=== PATIENT | male | born 1955 | race Caucasian/White ===

== ENCOUNTER → 2019-10-06 10:50 | Outpatient (CLI) | payer BC, SELFPAY | PROVIDERS: PCP Internal Medicine; Referring Provider Nurse Practitioner; Visit Provider Nurse Practitioner | DX: Z20.828 Contact with and (suspected) exposure to other viral communicable diseases (principal) | CPT/HCPCS: 87635; 94799; C9803; U0003 ==

== ENCOUNTER 2020-06-07 13:22 | Emergency (ER) | payer BC, SELFPAY ==
[2020-06-07 13:24] VITALS: BP 149/86; PULSE 74; RESP 16; TEMP 36.8; O2SAT 97; BMI 28.0
--- NOTE | 2020-06-07 13:46 | ED.VIS.FALL ---
History of Present Illness Chief Complaint: Upper Extremity Injury Informant: Patient Occurred: Today Fall down steps #: several Location: R shoulder Quality of Pain: Aching Current Severity: Moderate Maximum Severity: Severe Worsened by: movement Relieved by: still in sling Associated Symptoms: Loss of function. Negative for: Parasthesias, Weakness, Inability to ambulate, Loss of consciousness, Amnesia Narrative: Patient was trying to walk down the steps with crutches that he has been using because of a heel spur, lost his balance, falling down and caught himself with right outstretched hand, injuring his right shoulder as a result. No other injuries. No numbness in his hand. No wrist or elbow pain. Did not injure his head. Past Medical History - Allergies and Home Meds Allergies/Adverse Reactions: Allergies tamsulosin [From Flomax] Allergy (Verified 06/07/20 13:24) Swelling Primary Care Physician: Hemant Ross MD [Primary Care Provider] - Past Medical History: None Smoking Status: Never smoker Review of Systems General: Denies: Chills, Fever, Sweats Musculoskeletal: Reports: Extremity Pain. Denies: Swelling Skin: Denies: Rash, Wounds Neurological: Denies: Headache, Weakness, Numbness Physical Exam Vital Signs/Narrative: Vital Signs Temp Pulse Resp BP Pulse Ox 06/07/20 13:24 98.2 F 74 16 149/86 H 97 Inital Vital Signs reviewed: Yes General: Well nourished, Well developed, - - Well-appearing no distress Head: Normocephalic, Atraumatic Eyes: Perrl, EOMI Neck: Full ROM Extremeties: No deformity right upper extremity, limited range of motion of the right shoulder due to pain, holding right upper extremity in neutral abducted position with internal rotation. Pain and tenderness subacromial. No tenderness at the clavicle or acromioclavicular joint. Very limited ability to range in any direction, he is able to abduct around 15 degrees. Skin: Normal color, No rash, No Trauma - Skin intact with no signs of trauma right upper extremity Neurological: Alert, Oriented x3, Cranial nerves II-XII grossly intact, Normal Strength, Normal Sensation Psychological: Normal affect, Normal Mood Diagnostic/Tx/Re-eval Clinical Impression(s) from Imaging Studies Shoulder X-Ray 06/07/20 14:00 IMPRESSION: Normal x-ray examination of the right shoulder. Electronically Signed: Roger Iraheta MD at 14:30 EDT Tel , Service support , - Medical Decision Making On my interpretation 5 view x-ray series of the right shoulder including axillary view is adequate to rule out dislocation and also is negative for any other acute bony injury. Radiography agrees. Patient was given a [place] for pain, he did request a short course of some more for the weekend, the sling that he already came in with is helping as well. Given his extremely limited range of motion, my concern would be for a rotator cuff injury/tear. Certainly that is possible and he may need an MRI if he is not able to move his shoulder very much after a couple days or a week of rest and anti-inflammatories. He states he is already on the end of a prednisone taper because of his bone spur in his foot that he is following with podiatry for, and he takes aspirin because of history of congestive heart failure, so I think ice instead of ibuprofen would be reasonable in addition to [place] as needed. Given orthopedics to follow-up with. ED Disposition - Plan for ED Patient: Disposition: Home or Assisted Living Diagnosis: Injury of right shoulder Instructions: ED Rotator Cuff Tear Prescriptions: Hydrocodone Bitart/Apap 5-325 [[place] 5MG-325MG] 1 tablet PO Q4H PRN PRN 2 Days #10 tab PRN Reason: Pain Prescription Printed Referrals: Daniel Ashraf MD [STAFF PHYSICIAN] - 1 Week if not improving
--- NOTE | 2020-06-07 14:00 | RAD_ITS ---
STUDY: X-RAY - RIGHT SHOULDER REASON FOR EXAM: Right shoulder pain, limited range of motion, right shoulder injury from a fall today. TECHNIQUE: 5 view(s) of the shoulder. COMPARISON: None. FINDINGS: Normal glenohumeral articulation. Normal acromioclavicular joint. Normal acromion. Normal humeral head and visualized proximal humerus. The soft tissue structures are unremarkable. Normal visualized pulmonary apex. RAD/Shoulder min 2 Views IMPRESSION: Normal x-ray examination of the right shoulder. Electronically Signed: Roger Iraheta MD at 14:30 EDT Tel , Service support ,
== END 2020-06-07 15:02 | disposition home or self-care (01) ==
PROVIDERS: Emergency Provider Emergency Medicine; PCP Internal Medicine
DX: S49.91XA Unspecified injury of right shoulder and upper arm, initial encounter (principal); W10.9XXA Fall (on) (from) unspecified stairs and steps, initial encounter
CPT/HCPCS: 73030; 99282

== ENCOUNTER 2021-03-07 09:43 | Outpatient (CLI) | payer MEDICARE, BC, SELFPAY ==
--- NOTE | 2021-03-07 09:46 | ECHOCS_ITS ---
Reason For Study: Dyspnea/SOB Procedure This was a 2D Doppler, Color Flow transthoracic echocardiogram. Contrast injection was performed. Exam performed in department. Left Ventricle Normal LV size. Mild concentric left ventricular hypertrophy. Septal motion consistent with IVCD. Stage 1 diastolic dysfunction. The estimated ejection fraction is 47 %. There is borderline global hypokinesis of the left ventricle. Right Ventricle Normal RV size. Normal systolic function. Atria Normal left atrium. Normal right atrium. Mitral Valve Normal mitral valve. Systolic anterior motion of the mitral valve. Tricuspid Valve Normal tricuspid valve. Mild (1+) tricuspid valve insufficiency. Pulmonary artery systolic pressure is 24 mmHg. Aortic Valve Normal aortic valve. Trisinus/trileaflet aortic valve. Mild (1+) eccentric aortic valve insufficiency. Pulmonic Valve Normal pulmonic valve. Great Vessels Normal aortic root. The pulmonary artery is normal size. Normal inferior vena cava. Pericardium/Pleural No pericardial effusion. MMode/2D Measurements & Calculations LVIDd: 4.3 cm IVSd: 1.5 cm Ao root diam: 2.8 cm LVIDs: 3.5 cm LVPWd: 1.2 cm RVDd: 2.6 cm FS: 19.0 % LAV(MOD-bp): 13.4 ml LVAd ap4: 37.7 cm2 SV(MOD-sp4): 65.8 ml LAV(MOD-bp) Indexed: 7.0 ml/m2 LVLd ap4: 8.5 cm LAV(MOD-sp2): 13.8 ml EDV(MOD-sp4): 139.1 ml LAV(MOD-sp4): 11.0 ml EDV(sp4-el): 142.2 ml LVAs ap4: 25.5 cm2 LVLs ap4: 7.3 cm ESV(MOD-sp4): 73.3 ml ESV(sp4-el): 75.5 ml EF(MOD-sp4): 47.3 % EF(sp4-el): 46.9 % SV(sp4-el): 66.6 ml LA A4 area: 7.3 cm2 LA dimension(2D): 2.9 cm RA A4 area: 7.2 cm2 Doppler Measurements & Calculations MV E max uche: 42.0 cm/sec Lat Peak E' Uche: 5.5 cm/sec Med Peak E' Uche: 2.6 cm/sec MV A max uche: 98.3 cm/sec E/E' lat: 7.7 E/E' med: 16.3 MV E/A: 0.43 Ao V2 max: 144.9 cm/sec AI max uche: 442.8 cm/sec LV V1 max: 107.6 cm/sec Ao max P.4 mmHg AI max P.4 mmHg LV V1 max P.6 mmHg Ao V2 mean: 100.1 cm/sec Ao mean P.5 mmHg AI dec slope: 206.8 cm/sec2 Ao V2 VTI: 24.7 cm AI P1/2t: 627.0 msec PA V2 max: 146.4 cm/sec TR max uche: 227.6 cm/sec TR max P.7 mmHg ECHO/Echo Complete W/ Contrast Interpretation Summary Normal LV size. Mild concentric left ventricular hypertrophy. Stage 1 diastolic dysfunction. The estimated ejection fraction is 47 %. There is borderline global hypokinesis of the left ventricle. Mild (1+) eccentric aortic valve insufficiency. Contrast injection was performed. Ordering Physician: Manas Burns Referring Physician: Hemant Ross Performed By: Page Byrne, LAY, RVT
== END 2021-03-07 23:59 | disposition short-term general hospital (02) ==
LOC: CVS 09:45
PROVIDERS: PCP Internal Medicine; Referring Provider Internal Medicine Cardiovascular Disease; Visit Provider Internal Medicine Cardiovascular Disease
DX: I44.7 Left bundle-branch block, unspecified (principal); R06.00 Dyspnea, unspecified; R06.02 Shortness of breath
CPT/HCPCS: 93306; Q9957; A4216; C8929

== ENCOUNTER 2021-05-15 17:27 | Emergency (ER) | payer MEDICARE, BC, SELFPAY ==
[2021-05-15 17:27] VITALS: BP 145/92; PULSE 68; RESP 16; TEMP 36.6; O2SAT 97; BMI 28.1
--- NOTE | 2021-05-15 19:07 | CT_ITS ---
INDICATION: Injury/Pain EXAMINATION: CT CERVICAL SPINE - CT Spine Cervical W/O Contrast Injection TECHNIQUE: Helically acquired images were obtained of the cervical spine. 2D reformatted images were reviewed. A radiation dose optimization technique was used for this scan. IV Contrast dosage and agent: None. COMPARISON: None. FINDINGS: VERTEBRAE: No fracture or traumatic subluxation. No discrete lytic or blastic abnormality. Normal alignment. Normal craniocervical junction and cervicothoracic junction. Normal alignment of the odontoid process. DISCS and SPINAL CANAL: Disc heights are preserved. No critical stenosis. NECK SOFT TISSUES: No prevertebral soft tissue swelling. There is no cervical adenopathy. LUNG APICES: Clear. CT/Spine Cervical without Contras IMPRESSION: No evidence of acute cervical spinal fracture or spondylolisthesis. Electronically Signed: Gray Darby MD at 19:57 EDT ,
[2021-05-15] MEDS: HYDROcodone Bitartrate/Apap 5/325 Tablet PO (19:13)
--- NOTE | 2021-05-15 19:14 | EDS_ITS ---
HPI History of Present Illness Chief Complaint: Other, Pain/Inj Informant: patient Onset/Context/Timing Onset: Days (6) Context: Gradual Onset Timing: Continuous Quality: Sharp Location: Left cervical paraspinal Worsened by: Certain movements Relieved by: Nothing Narrative Narrative: Patient presents with neck pain that has been getting worse over the past 6 days. Patient states it is gradually getting worse. Patient describes the pain is sharp. Patient states the pain is over the left side of his neck. Patient states it is worse with certain movements. Patient denies any paresthesias or weakness. Patient denies any trauma or injury. Patient denies any radiation of the pain. [facility] Medical History BPH (benign prostatic hyperplasia) Chronic HFrEF (heart failure with reduced ejection fraction) COVID-19 virus detected (09/2019) DDD (degenerative disc disease) Essential hypertension Hypertriglyceridemia Left bundle branch block (LBBB) Non-ischemic cardiomyopathy Nonrheumatic aortic (valve) insufficiency Obstructive sleep apnea Prostate cancer Home Medications aspirin 81 mg PO DAILY@0800 06/07/20 [History Last Taken Unknown] cholecalciferol (vitamin D3) 25 mcg (1,000 unit) capsule 50 mcg PO DAILY cap 12/18/20 [History Last Taken Unknown] carvedilol 12.5 mg tablet 12.5 mg PO BID #60 tab 01/06/21 [Rx Last Taken Unknown] atorvastatin 10 mg tablet 10 mg PO DAILY #90 tab 04/29/21 [Rx Last Taken Unknown] sacubitril 97 mg-valsartan 103 mg tablet 1 tab PO BID #60 tab 05/12/21 [Rx Last Taken Unknown] hydrocodone-acetaminophen 1 tab PO Q6H PRN PRN 3 Days #10 tablet 05/15/21 [Rx Last Taken Unknown] Allergy/AdvReac Type Severity Reaction Status Date / Time tamsulosin [From Flomax] Allergy Swelling Verified 05/15/21 17:29 Surgical History H/O arthroscopic knee surgery History of cataract surgery History of colonoscopy History of left heart catheterization (03/29/18) History of myringotomy History of transurethral resection of prostate Social History Smoking Status: Never smoker alcohol intake: never substance use type: does not use caffeine: Yes Type: coffee Number of servings: 1 ROS ROS ED Constitutional Constitutional ED: Denies chills or fever(s) Eyes Eyes: Denies blurry vision or change in vision ENT ENT ED: Denies rhinorrhea or sore throat Cardiovascular Cardiovascular: Denies chest pain or palpitations Respiratory/Chest Respiratory/Chest: Denies cough or dyspnea Gastrointestinal Gastrointestinal: Denies nausea or vomiting Genitourinary Genitourinary ED: Denies dysuria or hematuria Musculoskeletal Musculoskeletal: Reports neck pain; Denies back pain Integumentary Denies abscess or rash Neurologic Neurologic: Denies headache(s) or weakness Allergic/Immunologic Allergic/Immunologic ED: Denies mouth swelling or urticaria EXAM Physical Exam Const Vital Signs: 05/15/21 17:27 Temperature 97.8 F Temperature Source Temporal Pulse Rate 68 Respiratory Rate 16 Blood Pressure 145/92 H Blood Pressure Mean 109 Pulse Ox 97 Oxygen Delivery Method Room Air Positive well nourished and well developed General Appearance ED: well developed and NAD HEENT Reports moist mucous membranes Neck supple and no JVD Neck Narrative: There is tenderness over the left cervical paraspinal muscles. There is no midline tenderness. There is no bony crepitance or step-off. Range of motion was limited in all motions of the cervical spine secondary to pain. General: tenderness Extremity normal to inspection General Extremety ED: Negative for edema or tenderness General Extremity: Negative for edema Neuro oriented x3, CN's II-XII intact bilaterally and no sensory deficits noted Sensorium / Orientation: alert Motor Exam: strength 5/5 throughout Psych mental status grossly normal Skin no rashes or lesions noted MDM MDM MDM Narrative Medical decision making narrative: CT scan cervical spine was obtained. There is no acute fracture or spondylolisthesis. This was interpreted by the radiologist and reviewed by myself. Patient was advised of his findings. Patient was given a prescription for a short course of [place]. Patient was instructed to use heat to the area. Patient was instructed to follow-up with his primary care physician in 5 to 7 days. Patient understood and was agreeable with the plan. All questions were answered. Radiography Diagnostic Testing: Clinical Impression(s) from Imaging Studies Cervical Spine CT 05/15/21 19:07 IMPRESSION: No evidence of acute cervical spinal fracture or spondylolisthesis. Electronically Signed: Gray Darby MD at 19:57 EDT , Discharge Plan Triage Chief Complaint: Other, Pain/Inj ED Provider: Sudheer Davenport Dx/Rx/DC Orders Clinical Impression: Acute cervical myofascial strain Instructions: ED Neck Sprain or Strain Prescriptions: New hydrocodone-acetaminophen [hydrocodone-acetaminophen] 1 TABLET tablet 1 tab PO Q6H PRN PRN (Reason: Pain) 3 Days Qty: 10 RF: 0 No Action cholecalciferol (vitamin D3) 25 mcg (1,000 unit) capsule 50 mcg PO DAILY RF: 0 Entresto 97-103 mg tablet 1 tab PO BID Qty: 60 RF: 11 aspirin 81 MG tablet,chewable 81 mg PO DAILY@0800 RF: 0 carvedilol 12.5 mg tablet 12.5 mg PO BID Qty: 60 RF: 11 atorvastatin 10 mg tablet 10 mg PO DAILY Qty: 90 RF: 3 Primary Care Provider: Hemant Ross Referrals: Hemant Ross MD [Primary Care Provider] - 3-5 Days Disposition Disposition: Home, Self Care
== END 2021-05-15 21:20 | disposition home or self-care (01) ==
PROVIDERS: Emergency Provider Emergency Medicine; PCP Internal Medicine; Visit Provider Emergency Medicine
DX: S16.1XXA Strain of muscle, fascia and tendon at neck level, initial encounter (principal); I11.0 Hypertensive heart disease with heart failure; I50.22 Chronic systolic (congestive) heart failure; I42.8 Other cardiomyopathies; E78.1 Pure hyperglyceridemia; G47.33 Obstructive sleep apnea (adult) (pediatric); X58.XXXA Exposure to other specified factors, initial encounter; Z79.82 Long term (current) use of aspirin; Z79.899 Other long term (current) drug therapy; Z86.16 Personal history of COVID-19
CPT/HCPCS: 72125; 99282

== ENCOUNTER 2021-06-24 06:00 | Emergency (ER) | payer MEDICARE, BC, SELFPAY ==
[2021-06-24 06:02] VITALS: BP 152/95; PULSE 74; RESP 17; TEMP 37.1; O2SAT 97; BMI 29.2
--- NOTE | 2021-06-24 06:09 | ED.VIS.LOWEX ---
HPI History of Present Illness Chief Complaint: Lower Extremity Injury Informant: patient Narrative Narrative: Patient is a 65-year-old male with history of gout, hypertension, hyperlipidemia, valvular insufficiency, nonischemic cardiomyopathy and prostate cancer presenting with bilateral foot pain. Patient states his feet started hurting him 5 days ago. Pain is on the left foot at the base of the second toe and on the right foot inferior to the lateral malleolus. He also noticed a red rash on his leg started yesterday. He states it feels like his prior gout flares. He is not currently on any medicine for gout. Denies any chest pain, shortness of breath or difficulty breathing. Denies any fever or chills. Denies any night sweats. No other complaints at this time. He tried taking Tylenol with no relief of his symptoms. PFSH [facility] Medical History BPH (benign prostatic hyperplasia) Chronic HFrEF (heart failure with reduced ejection fraction) COVID-19 virus detected (09/2019) DDD (degenerative disc disease) Essential hypertension Hypertriglyceridemia Left bundle branch block (LBBB) Non-ischemic cardiomyopathy Nonrheumatic aortic (valve) insufficiency Obstructive sleep apnea Prostate cancer Home Medications aspirin 81 mg PO DAILY@0800 06/07/20 [History Last Taken Unknown] cholecalciferol (vitamin D3) 25 mcg (1,000 unit) capsule 50 mcg PO DAILY cap 12/18/20 [History Last Taken Unknown] carvedilol 12.5 mg tablet 12.5 mg PO BID #60 tab 01/06/21 [Rx Last Taken Unknown] atorvastatin 10 mg tablet 10 mg PO DAILY #90 tab 04/29/21 [Rx Last Taken Unknown] sacubitril 97 mg-valsartan 103 mg tablet 1 tab PO BID #60 tab 05/12/21 [Rx Last Taken Unknown] colchicine 0.6 mg PO DAILY #7 tab 06/24/21 [Rx Last Taken Unknown] oxycodone-acetaminophen [Percocet] 1 tab PO Q6H PRN 3 Days #12 tab 06/24/21 [Rx Last Taken Unknown] prednisone 40 mg PO DAILY #8 tab 06/24/21 [Rx Last Taken Unknown] Allergy/AdvReac Type Severity Reaction Status Date / Time tamsulosin [From Flomax] Allergy Swelling Verified 05/15/21 17:29 Surgical History H/O arthroscopic knee surgery History of cataract surgery History of colonoscopy History of left heart catheterization (03/29/18) History of myringotomy History of transurethral resection of prostate Social History Smoking Status: Never smoker alcohol intake: never substance use type: does not use caffeine: Yes Type: coffee Number of servings: 1 ROS ROS ED Constitutional Constitutional ED: Denies chills or fever(s) Eyes Eyes: Denies change in vision ENT ENT ED: Denies rhinorrhea or sore throat Cardiovascular Cardiovascular: Denies chest pain Respiratory/Chest Respiratory/Chest: Denies cough or dyspnea Gastrointestinal Gastrointestinal: Denies abdominal pain, nausea or vomiting Musculoskeletal Musculoskeletal: Reports arthralgias; Denies back pain or neck pain Integumentary Reports rash Neurologic Neurologic: Denies headache(s), paresthesias or weakness Psychiatric Psychiatric: Denies depression EXAM Physical Exam Const Vital Signs: 06/24/21 06:02 06/24/21 06:05 Temperature 98.8 F Temperature Source Temporal Pulse Rate 74 Respiratory Rate 17 Respiratory Effort Normal Blood Pressure 152/95 H Blood Pressure Mean 114 Pulse Ox 97 Oxygen Delivery Method Room Air Positive well nourished and well developed General Appearance ED: well developed HEENT normocephalic and atraumatic Eyes PERRL Neck full ROM and supple Chest Wall inspection of chest normal Resp normal respiratory effort and clear to auscultation bilaterally Cardio regular rate, regular rhythm and no murmurs GI non-tender and non-distended Palpation: soft Extremity full ROM Extremity Narrative: No palpable cords. No significant edema. Normal range of motion. Slight tenderness palpation at the base of the left second toe and inferior to the lateral malleolus. No pinpoint bony tenderness. General Extremety ED: Negative for edema General Extremity: Negative for edema Neuro oriented x3, moves all extremities and no sensory deficits noted Sensorium / Orientation: alert Motor Exam: strength 5/5 throughout Skin Skin Narrative: Patient has a fine petechial rash on the bilateral lower extremities below the knees. No purpura appreciated. Mild warmth and erythema noted of the dorsal aspect of the left foot proximal to the left second through third phalanges. Patient has mild warmth and erythema inferior and slightly distal to the right lateral malleolus. MDM MDM MDM Narrative Medical decision making narrative: Patient evaluated for 5 days of bilateral foot pain. Does have history of gout. Does have some mild erythema and warmth that could be consistent with an acute gouty flare. Does also have a petechial rash of his lower extremities. Patient states this is new over the past few days. We will check basic labs including a CBC to check platelet count as well as BMP for kidney function. We will give patient 4 mg of morphine initially. I did also order CPK. Patient is given IV morphine but does not have any significant improvement. He states when he had his prostate surgery he required large amounts of pain medicine. Patient has normal platelet count. No leukocytosis. Kidney function is normal. Magnesium is normal. No significant electrolyte abnormalities. CK still pending. Patient be treated like a gouty flare. He is given dose of prednisone, colchicine and oxycodone in the ER. He will be discharged home to follow-up with podiatry. He has appointment for later this week with [facility]. He is given a prescription for prednisone, colchicine and Percocet. He is counseled that the colchicine can cause diarrhea. He is counseled this time that I do not think this is an infection and I do not think antibiotics are indicated. I do not think this is a septic joint. I do not think emergent arthrocentesis indicated at this time. He is given return precautions including worsening redness, fever or other systemic symptoms. Patient verbalizes agreement understand this plan. Discharged home in stable condition. Lab Data Labs: Laboratory Results - last 24 hr 06/24/21 06/24/21 06:10 06:10 WBC 7.2 RBC 4.64 Hgb 14.4 Hct 41.3 MCV 89.0 MCH 31.0 MCHC 34.9 RDW Std Deviation 42.3 RDW Coeff of Bernabe 12.9 Plt Count 178 MPV 8.9 Immature Gran % (Auto) 0.300 Neut % (Auto) 63.3 Lymph % (Auto) 25.9 [place] % (Auto) 8.3 Eos % (Auto) 1.9 Baso % (Auto) 0.3 Absolute Neuts (auto) 4.6 Absolute Lymphs (auto) 1.86 Nucleated RBC % 0 Sodium 141 Potassium 4.1 Chloride 109 H Carbon Dioxide 27.0 Anion Gap 5 BUN 20 H Creatinine 1.26 Estim Creat Clear Calc 56.10 Est GFR (MDRD) Af Amer 74 Est GFR (MDRD) Non-Af 61 BUN/Creatinine Ratio 15.9 Glucose 115 H Calcium 9.2 Magnesium 2.5 Discharge Plan Triage Chief Complaint: Lower Extremity Injury ED Provider: Faby Pradhan Dx/Rx/DC Orders Clinical Impression: Pain in both feet, Gout flare Instructions: ED Gout Prescriptions: New oxycodone-acetaminophen [Percocet] 5-325 mg tablet 1 tab PO Q6H PRN (Reason: pain) 3 Days Qty: 12 RF: 0 colchicine 0.6 mg tablet 0.6 mg PO DAILY Qty: 7 RF: 0 prednisone 20 mg tablet 40 mg PO DAILY Qty: 8 RF: 0 No Action cholecalciferol (vitamin D3) 25 mcg (1,000 unit) capsule 50 mcg PO DAILY RF: 0 Entresto 97-103 mg tablet 1 tab PO BID Qty: 60 RF: 11 aspirin 81 MG tablet,chewable 81 mg PO DAILY@0800 RF: 0 carvedilol 12.5 mg tablet 12.5 mg PO BID Qty: 60 RF: 11 atorvastatin 10 mg tablet 10 mg PO DAILY Qty: 90 RF: 3 Primary Care Provider: Hemant Ross Referrals: Jass Lewis DPM [STAFF PHYSICIAN] - As soon as possible Hemant Ross MD [Primary Care Provider] - Disposition Disposition: Home, Self Care
[2021-06-24 06:19] LABS: Absolute Lymphocyte Count 1.86 X10^3/uL (0.83-4.51); Absolute Neutrophil Count 4.6 X10^3/uL (2.0-7.7); Basophil# 0.02 X10^3/uL; Basophil% 0.3 % (0-1); Eosinophil# 0.14 X10^3/uL; Eosinophils% 1.9 % (0-5); Hematocrit 41.3 % (40-54); Hemoglobin 14.4 g/dL (13.0-16.5); Lymphocyte # 1.86 X10^3/ul (0.83-4.51); Lymphocyte % 25.9 % (19-41); Mean Corp Hgb Conc 34.9 g/dL (32-36); Mean Platelet Vol. 8.9 fl (6.2-12.0); Monocyte% 8.3 % (0-10); NRBC Flagged by Analyzer 0 % (0-5); Neutrophil # 4.55 X10^3/uL (2.7-7.7); Neutrophil % 63.3 % (47-70); Platelet Count 178 K/mm3 (150-450); RBC Distribution Width CV 12.9 % (11.6-14.6); RBC Distribution Width SD 42.3 fl (35.1-43.9); Red Blood Count 4.64 M/mm3 (4.6-6.2); White Blood Count 7.2 K/mm3 (4.4-11.0)
[2021-06-24] MEDS: Morphine 4 MG/ML Syringe IV (06:28)
[2021-06-24 06:44] LABS: Anion Gap 5 (5-15); BUN 20 mg/dL (7-18); BUN/Creat Ratio 15.9 RATIO (10-20); Calcium,Total 9.2 mg/dL (8.5-10.1); Chloride 109 mmol/L (98-107); Creatinine, Serum 1.26 mg/dL (0.70-1.30); EST Glomerular Filtration Rate 61 mL/min (>60); Est Glom Filt Rate - Afr Amer 74 mL/min (>60); Glucose 115 mg/dL (74-106); Magnesium 2.5 mg/dL (1.6-2.6); Potassium 4.1 mmol/L (3.5-5.1); Sodium Level 141 mmol/L (136-145)
[2021-06-24] MEDS: Colchicine 0.6 MG TABLET 1.2 MG PO (07:30)
[2021-06-24] MEDS: predniSONE 20 MG Tablet 60 MG PO (07:30)
[2021-06-24] MEDS: oxyCODONE 5 MG Tablet PO (07:31)
[2021-06-24 07:34] LABS: CPK Total, Creatine Kinase 71 U/L (39-308)
== END 2021-06-24 07:59 | disposition home or self-care (01) ==
PROVIDERS: Emergency Provider Emergency Medicine; PCP Internal Medicine; Visit Provider Emergency Medicine
DX: M10.09 Idiopathic gout, multiple sites (principal); I11.0 Hypertensive heart disease with heart failure; I50.22 Chronic systolic (congestive) heart failure; I42.8 Other cardiomyopathies; M79.672 Pain in left foot; M79.671 Pain in right foot; E78.5 Hyperlipidemia, unspecified; Z86.16 Personal history of COVID-19; G47.33 Obstructive sleep apnea (adult) (pediatric)
CPT/HCPCS: 80048; 82550; 83735; 85025; 99284; A4216

== ENCOUNTER → 2021-07-23 | Outpatient (CLI) | payer MEDICARE, BC, SELFPAY ==
--- NOTE | 2021-07-23 09:35 | ECHOLC_ITS ---
Reason For Study: CHF Procedure This was a limited 2D transthoracic echocardiogram. Contrast injection was performed. Exam performed in department. Left Ventricle Normal LV size. Left ventricular systolic function is lower limits of normal. The estimated ejection fraction is 47 %. There is mild global hypokinesis of the left ventricle. Right Ventricle Normal RV size. Normal systolic function. Atria Normal left atrium. Normal right atrium. Mitral Valve Normal mitral valve. Tricuspid Valve Normal tricuspid valve. Mild tricuspid valve insufficiency. Pulmonary artery systolic pressure is 30 mmHg. Aortic Valve Trisinus/trileaflet aortic valve. Mild (1+) aortic valve insufficiency. Pulmonic Valve The pulmonic valve is not well visualized. Great Vessels Normal aortic root. The pulmonary artery is normal size. Normal inferior vena cava. Pericardium/Pleural No pericardial effusion. Medication Diluted definity 3ml given slow IV push to enhance endocardial definition. MMode/2D Measurements & Calculations LVIDd: 5.4 cm IVSd: 1.1 cm LVIDs: 4.0 cm LVPWd: 1.2 cm LVAd ap4: 35.2 cm2 FS: 24.9 % LVLd ap4: 8.3 cm EDV(MOD-sp4): 121.9 ml EDV(sp4-el): 126.9 ml LVAs ap4: 25.2 cm2 LVLs ap4: 7.8 cm ESV(MOD-sp4): 68.7 ml ESV(sp4-el): 68.7 ml EF(MOD-sp4): 43.7 % EF(sp4-el): 45.9 % SV(MOD-sp4): 53.2 ml SV(sp4-el): 58.2 ml Doppler Measurements & Calculations TR max maryann: 260.4 cm/sec TR max P.1 mmHg ECHO/Echo Limited w/Contrast Interpretation Summary Normal LV size. Left ventricular systolic function is lower limits of normal. There is mild global hypokinesis of the left ventricle. The estimated ejection fraction is 47 %. Pulmonary artery systolic pressure is 30 mmHg. Structurally normal valves. Contrast injection was performed. Ordering Physician: José Miguel Byrne Referring Physician: Hemant Ross Performed By: Page Byrne, LAY, RVT
== END | disposition home or self-care (01) ==
LOC: CVS 09:34
PROVIDERS: PCP Internal Medicine; Referring Provider Nurse Practitioner Family; Visit Provider Nurse Practitioner Family
DX: I44.7 Left bundle-branch block, unspecified (principal); I42.8 Other cardiomyopathies; I10 Essential (primary) hypertension
CPT/HCPCS: 93308; Q9957; A4216; C8924

== ENCOUNTER 2022-03-06 09:26 | Outpatient (CLI) | payer MEDICARE, BC, SELFPAY ==
[2022-03-06 10:04] LABS: Absolute Neutrophil Count 2.8 X10^3/uL (2.0-7.7); Basophil# 0.02 X10^3/uL; Basophil% 0.4 % (0-1); Eosinophil# 0.14 X10^3/uL; Eosinophils% 2.5 % (0-5); Hematocrit 43.7 % (40-54); Hemoglobin 15.2 g/dL (13.0-16.5); Lymphocyte % 38.2 % (19-41); Mean Corp Hgb Conc 34.8 g/dL (32-36); Mean Corpuscular Hgb 31.7 pg (27.0-32.0); Monocyte% 7.3 % (0-10); NRBC Flagged by Analyzer 0 % (0-5); Neutrophil # 2.83 X10^3/uL (2.7-7.7); Neutrophil % 51.4 % (47-70); Platelet Count 159 K/mm3 (150-450); RBC Distribution Width CV 13.2 % (11.6-14.6); RBC Distribution Width SD 43.8 fl (35.1-43.9); White Blood Count 5.5 K/mm3 (4.4-11.0)
[2022-03-06 10:25] LABS: BNP,B-Type NATRIURETIC PEPTIDE 30.2 pg/mL (0-100)
[2022-03-06 10:42] LABS: ALB/GLOB Ratio 1.2 RATIO (0.9-2.4); AST(SGOT) 17 U/L (15-37); Alanine Aminotransfer ALT/SGPT 45 U/L (16-61); Albumin, Serum 3.7 g/dL (3.2-5.0); Alkaline Phosphatase 81 U/L (45-117); Anion Gap 6 (5-15); BUN 18 mg/dL (7-18); BUN/Creat Ratio 13.6 RATIO (10-20); Chloride 107 mmol/L (98-107); Creatinine, Serum 1.32 mg/dL (0.70-1.30); EST Glomerular Filtration Rate 58 mL/min (>60); Est Glom Filt Rate - Afr Amer 70 mL/min (>60); Glucose 143 mg/dL (74-106); Potassium 4.2 mmol/L (3.5-5.1); Protein, Total 6.7 g/dL (6.4-8.2); Sodium Level 141 mmol/L (136-145); Thyroid Stim Hormone (TSH) 1.42 uIU/mL (0.358-3.74)
== END 2022-03-06 23:59 | disposition home or self-care (01) ==
LOC: LAB 09:28
PROVIDERS: PCP Internal Medicine; Referring Provider Physician Assistant Medical; Visit Provider Physician Assistant Medical
DX: I42.8 Other cardiomyopathies (principal)
CPT/HCPCS: 36415; 80053; 83880; 84443; 85025

== ENCOUNTER → 2022-05-27 | Outpatient (CLI) | payer MEDICARE, BC, SELFPAY ==
--- NOTE | 2022-05-27 08:47 | ECHOD_ITS ---
Reason For Study: AORTIC VALVE INSUFF. Procedure This was a 2D Doppler, Color Flow transthoracic echocardiogram. Exam performed in department. Left Ventricle Normal LV size. Mild concentric left ventricular hypertrophy. The estimated ejection fraction is 45 %. Stage 1 diastolic dysfunction. No regional wall motion abnormalities noted. Right Ventricle Normal RV size. Normal systolic function. Atria Normal left atrium. Normal right atrium. Mitral Valve Normal mitral valve. Tricuspid Valve Normal tricuspid valve. Mild tricuspid valve insufficiency. Pulmonary artery systolic pressure is 30 mmHg. Aortic Valve Trisinus/trileaflet aortic valve. Mild (1+) eccentric aortic valve insufficiency. Pulmonic Valve Normal pulmonic valve. Great Vessels Normal aortic root. The pulmonary artery is normal size. Normal inferior vena cava. Pericardium/Pleural No pericardial effusion. MMode/2D Measurements & Calculations LVIDd: 4.8 cm IVSd: 1.3 cm Ao root diam: 2.7 cm LVIDs: 3.8 cm LVPWd: 1.2 cm FS: 19.5 % LAV(MOD-bp): 30.3 ml LVAd ap4: 33.4 cm2 SV(MOD-sp4): 54.5 ml LAV(MOD-bp) Indexed: 15.6 ml/m2 LVLd ap4: 8.0 cm LAV(MOD-sp2): 26.4 ml EDV(MOD-sp4): 114.1 ml LAV(MOD-sp4): 30.3 ml EDV(sp4-el): 117.6 ml LVAs ap4: 22.5 cm2 LVLs ap4: 7.1 cm ESV(MOD-sp4): 59.7 ml ESV(sp4-el): 60.7 ml EF(MOD-sp4): 47.7 % EF(sp4-el): 48.4 % SV(sp4-el): 57.0 ml LA A4 area: 14.2 cm2 RA A4 area: 9.1 cm2 Time Measurements MV dec time: 0.17 sec Doppler Measurements & Calculations MV E max uche: 57.0 cm/sec Lat Peak E' Uche: 11.4 cm/sec Med Peak E' Uche: 5.0 cm/sec MV A max uche: 71.0 cm/sec E/E' lat: 5.0 E/E' med: 11.3 MV E/A: 0.80 MV V2 max: 99.1 cm/sec Ao V2 max: 186.2 cm/sec MV max P.9 mmHg MV dec slope: 336.7 cm/sec2 Ao max P.9 mmHg MV V2 mean: 58.6 cm/sec Ao V2 mean: 125.1 cm/sec MV mean P.6 mmHg Ao mean P.4 mmHg MV V2 VTI: 24.8 cm Ao V2 VTI: 36.0 cm AV (velocity ratio): 0.63 AI max uche: 483.1 cm/sec LV V1 max: 107.9 cm/sec PA V2 max: 151.5 cm/sec AI max P.4 mmHg LV V1 max P.7 mmHg PA V2 mean: 95.6 cm/sec AI dec slope: 265.5 cm/sec2 LV V1 mean P.9 mmHg AI P1/2t: 532.8 msec LV V1 mean: 78.9 cm/sec LV V1 VTI: 22.5 cm TR max uche: 252.2 cm/sec TR max P.4 mmHg ECHO/Echo Complete Interpretation Summary Normal LV size. Mild concentric left ventricular hypertrophy. The estimated ejection fraction is 45 %. Stage 1 diastolic dysfunction. Mild (1+) eccentric aortic valve insufficiency. Pulmonary artery systolic pressure is 30 mmHg. Ordering Physician: Manas Burns Referring Physician: Manas Burns Performed By: Sandy Ayala RCS
== END | disposition home or self-care (01) ==
LOC: CVS 08:46
PROVIDERS: PCP Internal Medicine; Referring Provider Internal Medicine Cardiovascular Disease; Visit Provider Internal Medicine Cardiovascular Disease
DX: I35.1 Nonrheumatic aortic (valve) insufficiency (principal)
CPT/HCPCS: 93306

== ENCOUNTER 2022-06-01 15:09 | Emergency (ER) | payer MEDICARE, BC, SELFPAY ==
[2022-06-01 15:10] VITALS: BP 140/93; PULSE 102; RESP 18; TEMP 37.1; O2SAT 96
[2022-06-01 15:45] VITALS: BMI 28.5
--- NOTE | 2022-06-01 15:56 | EDS_ITS ---
HPI History of Present Illness Chief Complaint: Abd Pain Narrative Narrative: Patient presents with nausea vomiting and now watery diarrhea since yesterday. He has intermittent abdominal cramping but he has no abdominal pain. Patient has no flank pain no urinary symptoms. No known sick contacts. He is feeling somewhat lightheaded. [facility] Medical History BPH (benign prostatic hyperplasia) Chronic HFrEF (heart failure with reduced ejection fraction) COVID-19 virus detected (09/2019) DDD (degenerative disc disease) Essential hypertension Hypertriglyceridemia Left bundle branch block (LBBB) Non-ischemic cardiomyopathy Nonrheumatic aortic (valve) insufficiency Obstructive sleep apnea Prostate cancer Home Medications cholecalciferol (vitamin D3) 25 mcg (1,000 unit) capsule 50 mcg PO DAILY 12/18/20 [History Last Taken Unknown] ascorbic acid (vitamin C) 1,000 mg tablet 1,000 mg PO BID 08/20/21 [History Last Taken Unknown] atorvastatin 20 mg tablet 20 mg PO DAILY #90 tabs 09/09/21 [Rx Last Taken Unknown] sacubitril 97 mg-valsartan 103 mg tablet (Entresto) 1 tab PO BID #180 tabs 09/09/21 [Rx Last Taken Unknown] metoprolol succinate 50 mg tablet,extended release 24 hr 50 mg PO DAILY #180 tabs 03/05/22 [Rx Last Taken Unknown] fluticasone propionate 50 mcg/actuation nasal spray,suspension (Flonase Allergy Relief) 2 spray intranasal DAILY PRN 05/14/22 [History Last Taken Unknown] ondansetron 4 mg disintegrating tablet 4 mg PO Q8H PRN PRN Nausea #10 tabs 06/01/22 [Rx Last Taken Unknown] Allergy/AdvReac Type Severity Reaction Status Date / Time tamsulosin [From Flomax] Allergy Swelling Verified 06/01/22 15:10 Surgical History H/O arthroscopic knee surgery History of cataract surgery History of colonoscopy History of left heart catheterization (03/29/18) History of myringotomy History of transurethral resection of prostate Social History Smoking Status: Never smoker alcohol intake: never substance use type: does not use caffeine: Yes Type: coffee Number of servings: 1 ROS ROS ED ROS Narrative Past medical history: Reviewed, includes hypertension hypercholesterolemia and left bundle branch block. Medications: Reviewed Social history: Noncontributory Review of systems: General: No fever. Some lightheadedness ENT: No upper airway congestion, normal voice Neck: No neck pain Cardiovascular: No chest pain Respiratory: No shortness of breath or cough Gastrointestinal: Nausea vomiting diarrhea as in HPI Genitourinary: No dysuria Musculoskeletal: Denies myalgias no difficulty with ambulation Skin: No rash Neurological: No memory loss, confusion or any focal weakness EXAM Physical Exam Narrative Exam Narrative: Physical exam General: He appears relatively comfortable in bed. Head: Normocephalic, Atraumatic Eyes: Conjunctiva not pale ENT: Somewhat dry mucous membranes Neck: Supple, Nontender, No lymphadenopathy Cardiovascular: Regular rate, Regular rhythm Respiratory: No distress, CTA bilaterally Abdomen: Soft, no current abdominal pain. Back: Nontender, Normal Inspection. Negative for: CVA tenderness Extremities: Nontender, No edema Skin: Normal color, No rash Const Vital Signs: 06/01/22 15:10 Temperature 98.8 F Temperature Source Temporal Pulse Rate 102 H Respiratory Rate 18 Blood Pressure 140/93 H Blood Pressure Mean 108 Pulse Ox 96 Oxygen Delivery Method Room Air MDM MDM MDM Narrative Medical decision making narrative: A. Problems addressed Patient felt lightheaded, this is likely secondary to dehydration, he has nausea vomiting and watery diarrhea, gastroenteritis is endemic in the area and this is likely what the patient has. He has a normal white count and normal electrolytes. He is given IV fluids and significantly improved. He is given antiemetics. He was reevaluated he is no longer nauseated and he has no abdominal pain still. I believe he is safe for discharge. B. Amount and/or complexity of the data 1. CBC CMP and lipase were unremarkable Discussed the patient with who is in the room With thought about a CT however the patient has no pain at this time. C. Risk of complications and/or morbidity Differential diagnosis: See above Lab Data Labs: Laboratory Results - last 24 hr 06/01/22 06/01/22 16:10 16:10 WBC 5.5 RBC 4.85 Hgb 15.7 Hct 42.6 MCV 87.8 MCH 32.4 H MCHC 36.9 H RDW Std Deviation 43.0 RDW Coeff of Bernabe 13.4 Plt Count 160 MPV 9.0 Immature Gran % (Auto) 0.200 Neut % (Auto) 75.3 H Lymph % (Auto) 17.2 L [place] % (Auto) 7.1 Eos % (Auto) 0.2 Baso % (Auto) 0.0 Absolute Neuts (auto) 4.2 Absolute Lymphs (auto) 0.95 Nucleated RBC % 0 Sodium 138 Potassium 3.5 Chloride 106 Carbon Dioxide 26.0 Anion Gap 6 BUN 26 H Creatinine 1.37 H Estim Creat Clear Calc 50.93 Est GFR (MDRD) Af Amer 67 Est GFR (MDRD) Non-Af 56 L BUN/Creatinine Ratio 19.0 Glucose 128 H Calcium 9.1 Total Bilirubin 1.60 H AST 16 ALT 39 Alkaline Phosphatase 83 Total Protein 7.0 Albumin 3.8 Globulin 3.2 Albumin/Globulin Ratio 1.2 Lipase 83 Discharge Plan Triage Chief Complaint: Abd Pain ED Provider: Hesham Lamar Dx/Rx/DC Orders Clinical Impression: Nausea vomiting and diarrhea, Acute dehydration Instructions: ED Dehydration (Adult), ED Vomiting and Diarrhea ... Prescriptions: New ondansetron 4 mg tablet,disintegrating 4 mg PO Q8H PRN PRN (Reason: Nausea) Qty: 10 0RF No Action cholecalciferol (vitamin D3) 25 mcg (1,000 unit) capsule 50 mcg PO DAILY ascorbic acid (vitamin C) 1,000 mg tablet 1,000 mg PO BID atorvastatin 20 mg tablet 20 mg PO DAILY Qty: 90 3RF Entresto 97-103 mg tablet 1 tab PO BID Qty: 180 3RF fluticasone propionate [Flonase Allergy Relief] 50 mcg/actuation spray,suspension 2 spray intranasal DAILY PRN Rx Instructions: administer into each nostril metoprolol succinate 50 mg tablet extended release 24 hr 50 mg PO DAILY Qty: 180 3RF Primary Care Provider: Hemant Ross Referrals: Hemant Ross MD [Primary Care Provider] - 3-5 Days Disposition Disposition: Home, Self Care
[2022-06-01 16:15] LABS: Absolute Lymphocyte Count 0.95 X10^3/uL (0.83-4.51); Absolute Neutrophil Count 4.2 X10^3/uL (2.0-7.7); Eosinophil# 0.01 X10^3/uL; Eosinophils% 0.2 % (0-5); Hematocrit 42.6 % (40-54); Hemoglobin 15.7 g/dL (13.0-16.5); Lymphocyte # 0.95 X10^3/ul (0.83-4.51); Lymphocyte % 17.2 % (19-41); Mean Corp Hgb Conc 36.9 g/dL (32-36); Mean Corpuscular Hgb 32.4 pg (27.0-32.0); Mean Corpuscular Volume 87.8 fL (80-94); Monocyte# 0.39 X10^3/uL; Monocyte% 7.1 % (0-10); NRBC Flagged by Analyzer 0 % (0-5); Neutrophil # 4.15 X10^3/uL (2.7-7.7); Neutrophil % 75.3 % (47-70); Platelet Count 160 K/mm3 (150-450); RBC Distribution Width CV 13.4 % (11.6-14.6); Red Blood Count 4.85 M/mm3 (4.6-6.2); White Blood Count 5.5 K/mm3 (4.4-11.0)
[2022-06-01] MEDS: Ondansetron 4 MG/2 ML Vial IV (16:15)
[2022-06-01] MEDS: 0.9% Normal Saline 1,000 ML 1000 ML IV (16:15)
[2022-06-01 16:32] LABS: ALB/GLOB Ratio 1.2 RATIO (0.9-2.4); AST(SGOT) 16 U/L (15-37); Alanine Aminotransfer ALT/SGPT 39 U/L (16-61); Albumin, Serum 3.8 g/dL (3.2-5.0); Alkaline Phosphatase 83 U/L (45-117); Anion Gap 6 (5-15); BUN 26 mg/dL (7-18); Calcium,Total 9.1 mg/dL (8.5-10.1); Chloride 106 mmol/L (98-107); Creatinine, Serum 1.37 mg/dL (0.70-1.30); EST Glomerular Filtration Rate 56 mL/min (>60); Est Glom Filt Rate - Afr Amer 67 mL/min (>60); Estimated Creatinine Clearance 50.93 ml/min; Globulin 3.2 g/dL (2.2-4.2); Glucose 128 mg/dL (74-106); Lipase 83 U/L (73-393); Potassium 3.5 mmol/L (3.5-5.1); Sodium Level 138 mmol/L (136-145)
== END 2022-06-01 17:11 | disposition home or self-care (01) ==
PROVIDERS: Emergency Provider Emergency Medicine; PCP Internal Medicine; Visit Provider Emergency Medicine
DX: R10.9 Unspecified abdominal pain (principal); I11.0 Hypertensive heart disease with heart failure; I50.22 Chronic systolic (congestive) heart failure; R11.2 Nausea with vomiting, unspecified; R19.7 Diarrhea, unspecified; E86.0 Dehydration
CPT/HCPCS: 80053; 83690; 85025; 96361; 96374; 99283; J7030; J2405

== ENCOUNTER → 2022-06-10 | Outpatient (CLI) | payer MEDICARE, BC, SELFPAY ==
[2022-06-10 13:41] LABS: Protein:Creat Ratio 98 mg/g CRE (0-200)
== END | disposition home or self-care (01) ==
PROVIDERS: PCP Internal Medicine; Visit Provider Internal Medicine Nephrology
DX: N18.31 Chronic kidney disease, stage 3a (principal)
CPT/HCPCS: 82570; 84156

== ENCOUNTER 2022-09-16 12:53 | Emergency (ER) | payer MEDICARE, BC, SELFPAY ==
[2022-09-16 12:54] VITALS: BP 126/83; PULSE 81; RESP 16; TEMP 36.4; O2SAT 97; BMI 28.0
[2022-09-16 13:03] VITALS: BMI 61.8
--- NOTE | 2022-09-16 13:21 | EDS_ITS ---
HPI History of Present Illness Chief Complaint: Neuro S/Sx Informant: patient Onset/Context/Timing Context: Gradual Onset Timing: Intermittent Quality: Numbness Location: Left forehead and temporal area Worsened by: Nothing Relieved by: Aspirin Narrative Narrative: Patient presents with headache and numbness to the left side of his forehead and face that has been intermittent since last night. Patient describes it as a numbness over his left forehead and temporal area. Patient states it came on gradually. Patient states it comes and goes. Patient states he took aspirin last night which seemed to help. Patient denies any weakness. Patient denies any visual changes. Patient denies any difficulty breathing or difficulty swallowing. [facility] Medical History BPH (benign prostatic hyperplasia) Chronic HFrEF (heart failure with reduced ejection fraction) COVID-19 virus detected (09/2019) DDD (degenerative disc disease) Essential hypertension Hypertriglyceridemia Left bundle branch block (LBBB) Non-ischemic cardiomyopathy Nonrheumatic aortic (valve) insufficiency Obstructive sleep apnea Prostate cancer Home Medications ascorbic acid (vitamin C) 1,000 mg tablet 1,000 mg PO BID 08/20/21 [History Last Taken Unknown] atorvastatin 20 mg tablet 20 mg PO DAILY #90 tabs 06/28/22 [Rx Last Taken Unkn own] metoprolol succinate 50 mg tablet,extended release 24 hr 50 mg PO DAILY #180 tabs 07/28/22 [Rx Last Taken Unknown] sacubitril 97 mg-valsartan 103 mg tablet (Entresto) 1 tab PO BID #180 tabs 08/27 [Rx Last Taken Unknown] spironolactone 25 mg tablet 25 mg PO DAILY #90 tabs 08/28/22 [Rx Last Taken Unknown] Allergy/AdvReac Type Severity Reaction Status Date / Time tamsulosin [From Flomax] Allergy Swelling Verified 09/16/22 12:56 Surgical History H/O arthroscopic knee surgery History of cataract surgery History of colonoscopy History of left heart catheterization (03/29/18) History of myringotomy History of transurethral resection of prostate Social History Smoking Status: Never smoker alcohol intake: never substance use type: does not use caffeine: Yes Type: coffee Number of servings: 1 ROS ROS ED Constitutional Constitutional ED: Denies chills or fever(s) Eyes Eyes: Denies blurry vision or change in vision ENT ENT ED: Reports rhinorrhea; Denies sore throat Cardiovascular Cardiovascular: Reports chest pain; Denies palpitations Respiratory/Chest Respiratory/Chest: Denies cough or dyspnea Gastrointestinal Gastrointestinal: Reports nausea; Denies vomiting Genitourinary Genitourinary ED: Denies dysuria or hematuria Musculoskeletal Musculoskeletal: Reports back pain; Denies neck pain Integumentary Reports rash; Denies abscess Neurologic Neurologic: Reports headache(s); Denies weakness Allergic/Immunologic Allergic/Immunologic ED: Denies mouth swelling or urticaria EXAM Physical Exam Const Vital Signs: 09/16/22 12:54 09/16/22 14:23 Temperature 97.6 F L Temperature Source Temporal Pulse Rate 81 67 Respiratory Rate 16 16 Blood Pressure 126/83 H 135/85 H Blood Pressure Mean 97 101 Pulse Ox 97 99 Oxygen Delivery Method Room Air Room Air Positive well nourished and well developed General Appearance ED: well developed and NAD HEENT Reports moist mucous membranes HEENT Narrative: There is no tenderness over the temporal artery. Negative for tenderness Eyes PERRL and EOMs intact bilaterally Neck supple and no JVD Resp normal respiratory effort and clear to auscultation bilaterally Cardio regular rate, regular rhythm and no murmurs GI normal to inspection, nondistended, normoactive bowel sounds and non-tender Palpation: soft Extremity normal to inspection General Extremety ED: Negative for edema or tenderness General Extremity: Negative for edema Neuro oriented x3, CN's II-XII intact bilaterally and no sensory deficits noted Sensorium / Orientation: alert Motor Exam: strength 5/5 throughout Psych mental status grossly normal Skin no rashes or lesions noted MDM MDM MDM Narrative Medical decision making narrative: Differential diagnosis includes temporal arteritis, migraine headache, stroke, intracranial bleeding, cardiac dysrhythmia, cardiac ischemia, electrolyte abnormality, acute kidney injury, anemia, and anxiety. CT scan of the brain will be obtained to assess for intracranial bleeding and stroke. Basic metabolic profile will be obtained to assess for electrolyte abnormality and renal function. CBC will be obtained to assess for leukocytosis and anemia. Sed rate will be obtained to assess for inflammatory markers from temporal arteritis. EKG will be obtained to assess for cardiac dysrhythmia and cardiac ischemia. High-sensitivity troponin will be obtained to assess for cardiac ischemia. Chest x-ray will be obtained to assess for pneumonia and pneumothorax. History & Record Review Discussion w/independent historian: Patient Additional record(s) reviewed:: Prior labs Lab Data Attestation: I reviewed the patient's lab results. Lab results narrative: CBC was reviewed and was within normal limits. Basic metabolic profile was reviewed. Creatinine was slightly elevated at 1.32. This is consistent with prior results. High-sensitivity troponin was reviewed and was normal at 8. Sed rate was reviewed and was normal at 2. BGT was reviewed and was normal at 102. Labs: Laboratory Results - last 24 hr 09/16/22 09/16/22 13:09 13:26 WBC 6.6 RBC 4.61 Hgb 14.7 Hct 40.9 MCV 88.7 MCH 31.9 MCHC 35.9 RDW Std Deviation 41.5 RDW Coeff of Bernabe 12.9 Plt Count 169 MPV 9.6 Immature Gran % (Auto) 0.200 Neut % (Auto) 55.7 Lymph % (Auto) 36.0 [place] % (Auto) 6.2 Eos % (Auto) 1.4 Baso % (Auto) 0.5 Absolute Neuts (auto) 3.7 Absolute Lymphs (auto) 2.39 Nucleated RBC % 0 ESR 2 Sodium 141 Potassium 3.8 Chloride 107 Carbon Dioxide 24.0 Anion Gap 10 BUN 18 Creatinine 1.32 H Estim Creat Clear Calc 52.16 Est GFR (MDRD) Af Amer 70 Est GFR (MDRD) Non-Af 58 L BUN/Creatinine Ratio 13.6 Glucose 99 Calcium 8.8 Troponin I High Sens 8 POC Glucose 102 Radiography Chest X-Ray - ED: 2 View, Read by ED Physician, Read by Radiologist and No Acute Disease Diagnostic Testing: Clinical Impression(s) from Imaging Studies Brain CT 09/16/22 13:26 IMPRESSION: Chronic involutional changes of the brain, no acute hemorrhage. Electronically Signed: Pardeep Malin MD at 14:17 EDT , Chest X-Ray 09/16/22 13:26 IMPRESSION: Normal x-ray examination of the chest. Electronically Signed: Pardeep Malin MD at 14:18 EDT , CT scan of the brain was obtained. There is no acute intracranial abnormality. This was interpreted by the radiologist and was also independently reviewed by myself. PA and lateral chest x-ray was obtained. There are 2 views. On my independent interpretation, lung landa are clear. There is normal cardiac silhouette. Bony thorax is normal. There is no acute process noted. Radiologist also interpreted the x-ray and agrees. Treatment and Re-Evaluation :: Patient was advised of his findings. Patient denies any symptoms on reevaluation. Patient was instructed to continue taking aspirin as needed. Patient was instructed to follow-up with his primary care physician for further evaluation. Patient understood and was agreeable with the plan. All questions were answered. Discharge Plan Triage Chief Complaint: Neuro S/Sx ED Provider: Sudheer Davenport Dx/Rx/DC Orders Clinical Impression: Headache, Facial paresthesia, Essential hypertension Instructions: ED Headache Unspecified, ED Paraesthesias Prescriptions: No Action ascorbic acid (vitamin C) 1,000 mg tablet 1,000 mg PO BID atorvastatin 20 mg tablet 20 mg PO DAILY Qty: 90 3RF metoprolol succinate 50 mg tablet extended release 24 hr 50 mg PO DAILY Qty: 180 3RF Entresto 97-103 mg tablet 1 tab PO BID Qty: 180 3RF spironolactone 25 mg tablet 25 mg PO DAILY Qty: 90 3RF Primary Care Provider: Hemant Ross Referrals: Hemant Ross MD [Primary Care Provider] - 3-5 Days Disposition Disposition: Home, Self Care
--- NOTE | 2022-09-16 13:26 | RAD_ITS ---
STUDY: X-RAY CHEST REASON FOR EXAM: Male, 67 years old. Chest pain TECHNIQUE: PA and lateral views of the chest. COMPARISON: None. FINDINGS: EKG leads overlie the chest The lungs are clear and expanded. There is no demonstrated pleural abnormality. Normal size heart. Normal mediastinum and lisa. Normal visualized pulmonary arteries. Normal visualized aortic arch and descending thoracic aorta. Normal visualized thoracic spine. Normal visualized ribs, clavicles, and shoulders. There is no demonstrated abnormality of the visualized soft tissue structures of the upper abdomen. RAD/Chest PA and Lateral IMPRESSION: Normal x-ray examination of the chest. Electronically Signed: Pardeep Malin MD at 14:18 EDT ,
--- NOTE | 2022-09-16 13:26 | CT_ITS ---
STUDY: CT BRAIN WITHOUT CONTRAST REASON FOR EXAM: Male, 67 years old. Severe headache RADIATION DOSAGE (If Supplied By Facility): CTDIvol = ( 44.99 ) mGy, DLP = ( 796.11 ) mGycm TECHNIQUE: Transaxial CT imaging of the brain was performed without administration of intravenous contrast material. Individualized dose optimization techniques were used for this CT. COMPARISON: No relevant priors. FINDINGS: Normal soft tissue structures. Normal calvarium. Normal size ventricles and extra-axial spaces for the patient''s age. Normal white matter tracts of the cerebral hemispheres. Normal basal ganglia and thalami. Normal brainstem. Normal cerebellum. There is no intracranial hemorrhage. There are no findings of an acute ischemic infarction. Normal visualized paranasal sinuses. CT/Brain/Head without Contrast IMPRESSION: Chronic involutional changes of the brain, no acute hemorrhage. Electronically Signed: Pardeep Malin MD at 14:17 EDT ,
[2022-09-16 13:27] LABS: Bedside Glucose 102 mg/dL (74-106)
[2022-09-16 13:58] LABS: Erythrocyte Sedimentation Rate 2 mm/hr (0-20)
[2022-09-16 13:59] LABS: Absolute Lymphocyte Count 2.39 X10^3/uL (0.83-4.51); Absolute Neutrophil Count 3.7 X10^3/uL (2.0-7.7); Basophil# 0.03 X10^3/uL; Basophil% 0.5 % (0-1); Eosinophil# 0.09 X10^3/uL; Eosinophils% 1.4 % (0-5); Hematocrit 40.9 % (40-54); Hemoglobin 14.7 g/dL (13.0-16.5); Lymphocyte # 2.39 X10^3/ul (0.83-4.51); Mean Corp Hgb Conc 35.9 g/dL (32-36); Mean Corpuscular Hgb 31.9 pg (27.0-32.0); Mean Corpuscular Volume 88.7 fL (80-94); Mean Platelet Vol. 9.6 fl (6.2-12.0); Monocyte# 0.41 X10^3/uL; Monocyte% 6.2 % (0-10); NRBC Flagged by Analyzer 0 % (0-5); Neutrophil # 3.71 X10^3/uL (2.7-7.7); Neutrophil % 55.7 % (47-70); Platelet Count 169 K/mm3 (150-450); RBC Distribution Width CV 12.9 % (11.6-14.6); RBC Distribution Width SD 41.5 fl (35.1-43.9); Red Blood Count 4.61 M/mm3 (4.6-6.2); White Blood Count 6.6 K/mm3 (4.4-11.0)
[2022-09-16 14:14] LABS: Anion Gap 10 (5-15); BUN 18 mg/dL (7-18); BUN/Creat Ratio 13.6 RATIO (10-20); Calcium,Total 8.8 mg/dL (8.5-10.1); Chloride 107 mmol/L (98-107); Creatinine, Serum 1.32 mg/dL (0.70-1.30); EST Glomerular Filtration Rate 58 mL/min (>60); Est Glom Filt Rate - Afr Amer 70 mL/min (>60); Estimated Creatinine Clearance 52.16 ml/min; Glucose 99 mg/dL (74-106); Potassium 3.8 mmol/L (3.5-5.1); Sodium Level 141 mmol/L (136-145); Troponin-I HS 8 pg/mL (3.0-78.0)
[2022-09-16 14:23] VITALS: BP 135/85; PULSE 67; RESP 16; O2SAT 99
--- NOTE | 2022-09-16 16:05 | CHAPLAIN ---
Type of Pastoral Visit _x__ Initial Visit ___ Follow-up Visit ___ On-call Visit ___ General Patient Visit ___ Spiritual Assessment ___ Family Conference ___ Bereavement ___ Rapid Response ___ Code Blue ___ Other (describe below) Pastoral Care Referral From _x__ Patient ___ Family ___ Nurse ___ Physician ___ Nonprofit Director ___ Motel Operator ___ Other (describe below) Sacrament/Intervention _x__ Active listening ___ Anointing ___ Advent ___ Bereavement ___ Communion _x__ Lisa exploration ___ ___ Life review _x__ Prayer ___ Reconciliation ___ Sacrament of Sick ___ Supportive presence ___ Wedding ___ Other (describe below) Pastoral Comments
== END 2022-09-16 14:51 | disposition home or self-care (01) ==
PROVIDERS: Emergency Provider Emergency Medicine; PCP Internal Medicine; Visit Provider Emergency Medicine
DX: R51.9 Headache, unspecified (principal); I11.0 Hypertensive heart disease with heart failure; I50.22 Chronic systolic (congestive) heart failure; I42.8 Other cardiomyopathies; R20.2 Paresthesia of skin; Z86.16 Personal history of COVID-19
CPT/HCPCS: 70450; 71046; 80048; 82962; 84484; 85025; 85652; 90471; 99285; A4216

== ENCOUNTER → 2022-10-27 | Outpatient (CLI) | payer MEDICARE, BC, SELFPAY ==
[2022-10-27 11:39] LABS: Hematocrit 42.3 % (40-54); Mean Corp Hgb Conc 33.1 g/dL (32-36); Mean Corpuscular Hgb 31.2 pg (27.0-32.0); Mean Corpuscular Volume 94.2 fL (80-94); Mean Platelet Vol. 9.4 fl (6.2-12.0); Platelet Count 166 K/mm3 (150-450); RBC Distribution Width SD 44.7 fl (35.1-43.9); Red Blood Count 4.49 M/mm3 (4.6-6.2); White Blood Count 5.2 K/mm3 (4.4-11.0)
[2022-10-27 11:50] LABS: Albumin, Serum 3.9 g/dL (3.2-5.0); BUN 21 mg/dL (7-18); BUN/Creat Ratio 15.2 RATIO (10-20); Calcium,Total 9.5 mg/dL (8.5-10.1); Chloride 109 mmol/L (98-107); Creatinine, Serum 1.38 mg/dL (0.70-1.30); EST Glomerular Filtration Rate 55 mL/min (>60); Est Glom Filt Rate - Afr Amer 67 mL/min (>60); Glucose 143 mg/dL (74-106); Phosphorus 3.8 mg/dL (2.5-4.9); Potassium 5.1 mmol/L (3.5-5.1); Sodium Level 141 mmol/L (136-145); Uric Acid 8.3 mg/dL (3.5-7.2)
== END | disposition home or self-care (01) ==
LOC: POLAB3 10:20
PROVIDERS: PCP Internal Medicine; Visit Provider Internal Medicine Nephrology
DX: N18.31 Chronic kidney disease, stage 3a (principal); M10.9 Gout, unspecified
CPT/HCPCS: 36415; 80069; 84550; 85027

== ENCOUNTER 2023-02-01 15:04 | Emergency (ER) | payer MEDICARE, BC, SELFPAY ==
[2023-02-01 15:05] VITALS: BP 131/84; PULSE 83; RESP 16; TEMP 36.1; O2SAT 95; BMI 27.8
--- NOTE | 2023-02-01 16:40 | CT_ITS ---
STUDY: CT BRAIN WITHOUT CONTRAST REASON FOR EXAM: Male, 67 years old. vertigo RADIATION DOSAGE (If Supplied By Facility): CTDIvol = ( 44.99 ) mGy, DLP = ( 779.24 ) mGycm TECHNIQUE: Transaxial CT imaging of the brain was performed without administration of intravenous contrast material. Individualized dose optimization techniques were used for this CT. COMPARISON: No relevant priors. FINDINGS: Normal soft tissue structures. Normal calvarium. Normal size ventricles and extra-axial spaces for the patient''s age. Normal white matter tracts of the cerebral hemispheres. Normal basal ganglia and thalami. Normal brainstem. Normal cerebellum. There is no intracranial hemorrhage. There are no findings of an acute ischemic infarction. Normal visualized paranasal sinuses . Postsurgical changes of the orbits. Mild opacification of the mastoid air cells bilaterally likely due to chronic mastoid disease CT/Brain/Head without Contrast IMPRESSION: Normal unenhanced CT scan of the brain. 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
--- NOTE | 2023-02-01 16:43 | EDS_ITS ---
HPI History of Present Illness Chief Complaint: Dizziness Informant: patient Narrative Narrative: Patient presents with vertigo. Patient has had vertigo before. He had it a couple months ago when he had a ear infection. He took Cipro drops and amoxicillin and the symptoms all went away. He was also on meclizine for this. He states he got the vertigo back today. But he does not have any of the other symptoms. No congestion no fevers or chills. He states if he looks upward to the right side he gets a spinning sensation that will oftentimes make him vomit. He tried the meclizine at home but he then got vertigo with motion and then vomited the meds up. No headache. No numbness tingling weakness. He has had a history of left bundle branch block but no history of cardiac stents or stroke. [facility] Medical History BPH (benign prostatic hyperplasia) Chronic HFrEF (heart failure with reduced ejection fraction) COVID-19 virus detected (09/2019) DDD (degenerative disc disease) Essential hypertension Hypertriglyceridemia Left bundle branch block (LBBB) Non-ischemic cardiomyopathy Nonrheumatic aortic (valve) insufficiency Obstructive sleep apnea Prostate cancer Home Medications ascorbic acid (vitamin C) 1,000 mg tablet 1,000 mg PO BID 08/20/21 [History Last Taken Unknown] atorvastatin 20 mg tablet 20 mg PO DAILY #90 tabs 06/28/22 [Rx Last Taken Unknown] metoprolol succinate 50 mg tablet,extended release 24 hr 50 mg PO DAILY #180 tabs 07/28/22 [Rx Last Taken Unknown] sacubitril 97 mg-valsartan 103 mg tablet (Entresto) 1 tab PO BID #180 tabs 08/27/22 [Rx Last Taken Unknown] spironolactone 25 mg tablet 25 mg PO DAILY #90 tabs 08/28/22 [Rx Last Taken Unkn own] meclizine 25 mg tablet 25 mg PO 4X/DAY PRN PRN Dizziness #20 tabs 02/01/23 [Rx Last Taken Unknown] ondansetron 4 mg disintegrating tablet 4 mg PO Q8H PRN PRN Nausea #10 tabs 02/01/23 [Rx Last Taken Unknown] Allergy/AdvReac Type Severity Reaction Status Date / Time tamsulosin [From Flomax] Allergy Swelling Verified 09/16/22 12:56 Surgical History H/O arthroscopic knee surgery History of cataract surgery History of colonoscopy History of left heart catheterization (03/29/18) History of myringotomy History of transurethral resection of prostate Social History Smoking Status: Never smoker alcohol intake: never substance use type: does not use caffeine: Yes Type: coffee Number of servings: 1 ROS ROS ED Constitutional Constitutional ED: Denies chills, fever(s) or subjective Eyes Eyes: Denies blurry vision, change in vision or diplopia ENT ENT ED: Denies ear pain, rhinorrhea or sore throat Cardiovascular Cardiovascular: Denies chest pain or palpitations Respiratory/Chest Respiratory/Chest: Denies cough or dyspnea Gastrointestinal Gastrointestinal: Reports nausea, vomiting and other Details: Not nauseated now. But if he looks up or to the right he will get very nauseated Musculoskeletal Musculoskeletal: Denies myalgias Integumentary Denies rash Neurologic Neurologic: Denies headache(s), paresthesias or weakness Hematologic/Lymphatic Hematologic/Lymphatic: Denies easy bleeding or easy bruising Allergic/Immunologic Allergic/Immunologic ED: Denies urticaria EXAM Physical Exam Narrative Exam Narrative: CONSTITUTIONAL: Patient is nontoxic in appearance. The patient looks comfortable. Work of breathing looks normal. But he does tend to sit still in the bed and look straight forward. HEENT: No notable trauma. Mucous membranes normally dry. No sinus tenderness. Nasal passages are clear. Oropharynx is normal. Both tympanic membranes are clear and no sign of an external otitis either. EYES: No conjunctival injection. No proptosis. No pain with range of motion. No pallor. Patient preferred not to look upward to the right to test for nystagmus. NECK: No meningismus. No JVD. Bruit. CARDIOVASCULAR: Regular rate. Regular rhythm. No notable murmur. No JVD. RESPIRATORY: No respiratory distress. Breathing is unlabored. No wheezes. No rhonchi. No rales. No pain with a deep breath. GASTROINTESTINAL: Not distended. Bowel sounds are normal. No tenderness. No guarding. No rebound. No palpable mass. No bruit. GENITOURINARY: No tenderness over the bladder. No CVA tenderness. MUSCULOSKELETAL: Atraumatic. No peripheral edema. No cord. No tenderness along the deep venous system. No asymmetry. NEUROLOGICAL: Patient is alert and oriented. No focal deficit noted. NIH stroke scale is 0. SKIN: No noted rashes. No diaphoresis. No vesicles noted. No notable pallor. PSYCHIATRIC: Patient is calm. Mood is appropriate. Const Vital Signs: 02/01/23 15:05 02/01/23 17:22 Temperature 97.0 F L Temperature Source Temporal Pulse Rate 83 Respiratory Rate 16 Respiratory Effort Normal Respiratory Pattern Normal Blood Pressure 131/84 H Blood Pressure Mean 99 Pulse Ox 95 Oxygen Delivery Method Room Air MDM MDM MDM Narrative Medical decision making narrative: My independent interpretation of the CT shows no acute process. 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 CBC is overall normal. Electrolytes showed some mild elevation in creatinine which is really baseline. He also has slight elevation of the glucose which she has had before. We did talk about this. Patient's nausea got better with Zofran. But Valium orally did not help his vertigo a lot. We then gave him his meclizine and he feels much better. I went in to see him. He can turn his head left right look up and down. He was not getting vertiginous. I think we can get him home at this time. He has a few meclizine left but I will write for some more. I will also write for Zofran. We discussed reasons to return. This patient's symptoms are much more consistent with benign positional vertigo. I do not think this is representing posterior circulation disease. Lab Data Attestation: I reviewed the patient's lab results. Labs: Laboratory Results - last 24 hr 02/01/23 16:59 WBC 9.5 RBC 4.47 L Hgb 14.0 Hct 40.4 MCV 90.4 MCH 31.3 MCHC 34.7 RDW Std Deviation 41.7 RDW Coeff of Bernabe 12.7 Plt Count 181 MPV 9.1 Immature Gran % (Auto) 0.400 Neut % (Auto) 81.0 H Lymph % (Auto) 12.2 L [place] % (Auto) 5.7 Eos % (Auto) 0.5 Baso % (Auto) 0.2 Absolute Neuts (auto) 7.7 Absolute Lymphs (auto) 1.16 Nucleated RBC % 0 Sodium 137 Potassium 4.2 Chloride 105 Carbon Dioxide 24.0 Anion Gap 8 BUN 24 H Creatinine 1.31 H Estim Creat Clear Calc 52.56 Est GFR (MDRD) Af Amer 71 Est GFR (MDRD) Non-Af 58 L BUN/Creatinine Ratio 18.3 Glucose 158 H Calcium 9.4 Radiography Diagnostic Testing: Clinical Impression(s) from Imaging Studies Brain CT 02/01/23 16:40 IMPRESSION: Normal unenhanced CT scan of the brain. 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 Electronically Signed: Raj Stahl MD at 17:29 EST , Discharge Plan Triage Chief Complaint: Dizziness ED Provider: Emilio Dean Dx/Rx/DC Orders Clinical Impression: Vertigo, Nausea & vomiting Instructions: ED Vertigo, Unspecified Prescriptions: New meclizine [meclizine] 25 mg tablet 25 mg PO 4X/DAY PRN PRN (Reason: Dizziness) Qty: 20 0RF ondansetron [ondansetron] 4 mg tablet,disintegrating 4 mg PO Q8H PRN PRN (Reason: Nausea) Qty: 10 0RF No Action ascorbic acid (vitamin C) 1,000 mg tablet 1,000 mg PO BID atorvastatin 20 mg tablet 20 mg PO DAILY Qty: 90 3RF metoprolol succinate 50 mg tablet extended release 24 hr 50 mg PO DAILY Qty: 180 3RF Entresto 97-103 mg tablet 1 tab PO BID Qty: 180 3RF spironolactone 25 mg tablet 25 mg PO DAILY Qty: 90 3RF Primary Care Provider: Hemant Ross Referrals: Hemant Ross MD [Primary Care Provider] - 3-5 Days if not improving Disposition Disposition: Home, Self Care
[2023-02-01 17:04] VITALS: BP 132/76; PULSE 89; RESP 16; O2SAT 99
[2023-02-01] MEDS: Ondansetron 4 MG/2 ML Vial IV (17:04)
[2023-02-01] MEDS: 0.9% Normal Saline (1000mL) 1,000 ML 1000 ML IV (17:04)
[2023-02-01] MEDS: diazePAM 2 MG Tablet 4 MG PO (17:05)
[2023-02-01 17:13] LABS: Absolute Lymphocyte Count 1.16 X10^3/uL (0.83-4.51); Absolute Neutrophil Count 7.7 X10^3/uL (2.0-7.7); Basophil# 0.02 X10^3/uL; Basophil% 0.2 % (0-1); Eosinophil# 0.05 X10^3/uL; Eosinophils% 0.5 % (0-5); Hematocrit 40.4 % (40-54); Lymphocyte # 1.16 X10^3/ul (0.83-4.51); Lymphocyte % 12.2 % (19-41); Mean Corp Hgb Conc 34.7 g/dL (32-36); Mean Corpuscular Hgb 31.3 pg (27.0-32.0); Mean Corpuscular Volume 90.4 fL (80-94); Mean Platelet Vol. 9.1 fl (6.2-12.0); Monocyte# 0.54 X10^3/uL; Monocyte% 5.7 % (0-10); NRBC Flagged by Analyzer 0 % (0-5); Neutrophil # 7.66 X10^3/uL (2.7-7.7); Platelet Count 181 K/mm3 (150-450); RBC Distribution Width CV 12.7 % (11.6-14.6); RBC Distribution Width SD 41.7 fl (35.1-43.9); Red Blood Count 4.47 M/mm3 (4.6-6.2); White Blood Count 9.5 K/mm3 (4.4-11.0)
[2023-02-01 17:25] LABS: Anion Gap 8 (5-15); BUN 24 mg/dL (7-18); BUN/Creat Ratio 18.3 RATIO (10-20); Calcium,Total 9.4 mg/dL (8.5-10.1); Chloride 105 mmol/L (98-107); Creatinine, Serum 1.31 mg/dL (0.70-1.30); EST Glomerular Filtration Rate 58 mL/min (>60); Est Glom Filt Rate - Afr Amer 71 mL/min (>60); Estimated Creatinine Clearance 52.56 ml/min; Glucose 158 mg/dL (74-106); Potassium 4.2 mmol/L (3.5-5.1); Sodium Level 137 mmol/L (136-145)
[2023-02-01] MEDS: Meclizine HCl 25 MG Tablet PO (19:37)
[2023-02-01 20:29] VITALS: BP 135/68; PULSE 79; RESP 16; O2SAT 98
== END 2023-02-01 20:31 | disposition home or self-care (01) ==
PROVIDERS: Emergency Provider Emergency Medicine; PCP Internal Medicine; Visit Provider Emergency Medicine
DX: R11.2 Nausea with vomiting, unspecified (principal); I11.0 Hypertensive heart disease with heart failure; I50.22 Chronic systolic (congestive) heart failure; I42.8 Other cardiomyopathies; R42 Dizziness and giddiness; Z86.16 Personal history of COVID-19; G47.33 Obstructive sleep apnea (adult) (pediatric)
CPT/HCPCS: 70450; 80048; 85025; 96361; 96374; 99284; J7030; A4216; J2405

== ENCOUNTER 2023-05-05 19:16 | Emergency (ER) | payer MEDICARE, BC, SELFPAY ==
[2023-05-05 19:16] VITALS: BP 131/88; PULSE 100; RESP 18; TEMP 36.6; O2SAT 99; BMI 27.8
--- NOTE | 2023-05-05 19:35 | EKG12_ITS ---
Test Reason : DYSRHYTHMIA Blood Pressure : / mmHG Vent. Rate : 090 BPM Atrial Rate : 000 BPM P-R Int : 000 ms QRS Dur : 138 ms QT Int : 398 ms P-R-T Axes : 000 -13 147 degrees QTc Int : 486 ms Normal Sinus Rhythm Left bundle branch block Abnormal ECG Confirmed by Jass Rutledge ([id number]), makeup editor CURT RANGEL ([id number]) on 05/06/2023 2:51:36 PM Referred By: Confirmed By:Jass Rutledge
--- NOTE | 2023-05-05 19:38 | EX.ED.DYSGE1 ---
HPI <Fanny Arroyo RN - Last Filed: 05/05/23 21:52> History of Present Illness Chief Complaint: Nausea/Vomiting/Diarrhea Informant: patient Onset/Context/Timing Onset: Days (2) Context: Gradual Onset Timing: Continuous Current Severity: 8/10 Maximum Severity: 8/10 Worsened by: Eating Narrative Narrative: Patient is a 64-year-old male who presents to the ED with 2 days of nausea, vomiting, and diarrhea. Patient reports chills today with a temperature 99.0. Patient has tried Zofran and Kaopectate at home without relief. He also reports lower abdominal cramping and decreased p.o. intake. Patient also reports blood streaks in his stool beginning this morning. States his stool and urine are both orange. He has been on amoxicillin for 10 days for a left ear infection. Patient also reports palpitations and a history of A-fib. He denies any recent surgeries or travels. Prior similar symptoms: No Recent Illness/Hospitalization: No PFSH <Fanny Arroyo RN - Last Filed: 05/05/23 21:52> PFSH Medical History BPH (benign prostatic hyperplasia) Chronic HFrEF (heart failure with reduced ejection fraction) COVID-19 virus detected (09/2019) DDD (degenerative disc disease) Essential hypertension Hypertriglyceridemia Left bundle branch block (LBBB) Non-ischemic cardiomyopathy Nonrheumatic aortic (valve) insufficiency Obstructive sleep apnea Prostate cancer Home Medications ascorbic acid (vitamin C) 1,000 mg tablet 1,000 mg PO BID 08/20/21 [History Last Taken Unknown] atorvastatin 20 mg tablet 20 mg PO DAILY #90 tabs 06/28/22 [Rx Last Taken Unknown] metoprolol succinate 50 mg tablet,extended release 24 hr 50 mg PO DAILY #180 tabs 07/28/22 [Rx Last Taken Unknown] meclizine 25 mg tablet 25 mg PO 4X/DAY PRN PRN Dizziness #20 tabs 02/01/23 [Rx Last Taken Unknown] ondansetron 4 mg disintegrating tablet 4 mg PO Q8H PRN PRN Nausea #10 tabs 02/01/23 [Rx Last Taken Unknown] albuterol sulfate 90 mcg/actuation aerosol inhaler 2 puff inhalation Q6H PRN shortness of breath or wheezing 05/06/23 [History Last Taken Unknown] allopurinol 100 mg tablet 100 mg PO DAILY PRN GOUT 05/06/23 [History Last Taken Unknown] ciprofloxacin HCl 500 mg tablet 500 mg PO BID #6 TABLETS 05/06/23 [Rx Last Taken Unknown] dicyclomine 10 mg capsule 20 mg (2 x 10 mg) PO Q6H PRN abdominal pain #20 CAPSULES 05/06/23 [Rx Last Taken Unknown] Allergy/AdvReac Type Severity Reaction Status Date / Time tamsulosin [From Flomax] Allergy Swelling Verified 05/05/23 19:18 Surgical History H/O arthroscopic knee surgery History of cataract surgery History of colonoscopy History of left heart catheterization (03/29/18) History of myringotomy History of transurethral resection of prostate Social History Smoking Status: Never smoker alcohol intake: never substance use type: does not use caffeine: Yes Type: coffee Number of servings: 1 ROS <Fanny Arroyo RN - Last Filed: 05/05/23 21:52> ROS ED Constitutional Constitutional ED: Reports chills; Denies fever(s), sweats or weight loss Eyes Eyes: Denies change in vision ENT ENT ED: Reports rhinorrhea and sore throat; Denies ear pain Cardiovascular Cardiovascular: Reports palpitations; Denies chest pain, orthopnea or racing heartbeat Respiratory/Chest Respiratory/Chest: Denies cough, dyspnea, dyspnea on exertion or orthopnea Gastrointestinal Gastrointestinal: Reports abdominal pain, diarrhea, nausea and vomiting Genitourinary Genitourinary ED: Denies dysuria, hematuria or urinary frequency Musculoskeletal Musculoskeletal: Denies arthralgias or myalgias Neurologic Neurologic: Denies headache(s), paresthesias or weakness Hematologic/Lymphatic Hematologic/Lymphatic: Reports systems reviewed and no addt'l complaints, except as documented EXAM <Fanny Arroyo RN - Last Filed: 05/05/23 21:52> Physical Exam Narrative Exam Narrative: Patient awake, alert. Const Vital Signs: 05/05/23 19:16 05/05/23 21:16 05/05/23 23:00 Temperature 97.9 F Temperature Source Temporal Pulse Rate 100 82 85 Respiratory Rate 18 23 H 19 H Blood Pressure 131/88 H 135/98 H 137/84 H Blood Pressure Mean 102 110 101 Pulse Ox 99 97 95 Oxygen Delivery Method Room Air Room Air Room Air 05/06/23 01:00 Temperature Temperature Source Pulse Rate 89 Respiratory Rate 17 Blood Pressure Blood Pressure Mean Pulse Ox 97 Oxygen Delivery Method Room Air Positive well nourished and well developed General Appearance ED: well developed and NAD HEENT Reports moist mucous membranes HEENT Narrative: Bilateral tympanic membranes visualized and shiny. No erythema noted. Negative for trauma or tenderness Eyes PERRL and EOMs intact bilaterally Neck no lymphadenopathy, supple and no JVD General: Negative for tenderness Chest Wall inspection of chest normal and palpation of chest normal Resp normal respiratory effort and clear to auscultation bilaterally Auscultation: Negative for rales, rhonchi or wheezes Cardio regular rate, regular rhythm, S1 normal heart sound and S2 normal heart sound GI normal to inspection, nondistended, normoactive bowel sounds Palpation: soft and tender LLQ and RLQ Narrative: Patient reports orange urine. Back/Spine no CVA tenderness Extremity normal to inspection General Extremety ED: Negative for edema or tenderness General Extremity: Negative for edema Neuro oriented x3 Sensorium / Orientation: alert Motor Exam: strength 5/5 throughout Psych mental status grossly normal Skin no rashes or lesions noted, no wounds and skin turgor normal <Dr. Ancelmo Cooper MD - Last Filed: 05/05/23 22:26> Physical Exam Const Vital Signs: 05/05/23 19:16 05/05/23 21:16 05/05/23 23:00 Temperature 97.9 F Temperature Source Temporal Pulse Rate 100 82 85 Respiratory Rate 18 23 H 19 H Blood Pressure 131/88 H 135/98 H 137/84 H Blood Pressure Mean 102 110 101 Pulse Ox 99 97 95 Oxygen Delivery Method Room Air Room Air Room Air 05/06/23 01:00 Temperature Temperature Source Pulse Rate 89 Respiratory Rate 17 Blood Pressure Blood Pressure Mean Pulse Ox 97 Oxygen Delivery Method Room Air <Dr. Wilian Ann MD - Last Filed: 05/06/23 03:23> Physical Exam Const Vital Signs: 05/05/23 19:16 05/05/23 21:16 05/05/23 23:00 Temperature 97.9 F Temperature Source Temporal Pulse Rate 100 82 85 Respiratory Rate 18 23 H 19 H Blood Pressure 131/88 H 135/98 H 137/84 H Blood Pressure Mean 102 110 101 Pulse Ox 99 97 95 Oxygen Delivery Method Room Air Room Air Room Air 05/06/23 01:00 Temperature Temperature Source Pulse Rate 89 Respiratory Rate 17 Blood Pressure Blood Pressure Mean Pulse Ox 97 Oxygen Delivery Method Room Air [facility] <Fanny Arroyo RN - Last Filed: 05/05/23 21:52> [facility] Narrative Medical decision making narrative: IV line initiated. Labwork obtained to evaluate for leukocytosis, anemia, and electrolyte derangement. Urinalysis obtained to evaluate for infection/hematuria. EKG obtained to evaluate for cardiac arrhythmia/ischemia. I have personally performed a face to face assessment of the patient and have reviewed the LUIS Note. I performed a substantive portion of the visit including all aspects of the following. My decker findings include: History is 67-year-old male history of ischemic cardiomyopathy and prior prostate cancer. Has had about a 3 to 4-day history of nausea, vomiting and diarrhea. No fever. No dysuria. Periumbilical abdominal pain began yesterday. No prior abdominal surgeries. Exam is [67-year-old male no acute distress vital signs stable afebrile. Pulse ox 9 9% on room air no hypoxia. HEENT exam unremarkable except mild dry mucous membranes. Neck nontender no JVD. Lungs clear to auscultation bilaterally. Heart regular rhythm rate about 100 no murmur. Chest wall nontender. Abdomen soft nondistended normal bowel sounds no peritoneal signs. Mildly tender periumbilical region. No hernia. No mass. No pulsatile mass. No specific right upper or right lower quadrant tenderness. No signs of obstruction. Moving all 4 extremities. Nontender no edema. Neurologically is awake and alert no focal motor deficits. Back is nontender.] Medical Decision Making [67-year-old male with nausea vomiting diarrhea and mild abdominal discomfort. IV fluids. IV Zofran for nausea morphine for pain. And a CT of his abdomen pelvis.] Other additions or changes: [None] History & Record Review Discussion w/independent historian: Patient and Significant other Lab Data Attestation: I reviewed the patient's lab results. Labs: Laboratory Results - last 24 hr 05/05/23 05/05/23 19:54 21:36 WBC 16.0 H RBC 4.89 Hgb 15.1 Hct 42.9 MCV 87.7 MCH 30.9 MCHC 35.2 RDW Std Deviation 40.9 RDW Coeff of Bernabe 12.8 Plt Count 290 MPV 8.5 Immature Gran % (Auto) 0.600 Neut % (Auto) 76.9 H Lymph % (Auto) 17.0 L Lamb % (Auto) 4.7 Eos % (Auto) 0.6 Baso % (Auto) 0.2 Absolute Neuts (auto) 12.3 H Absolute Lymphs (auto) 2.73 Nucleated RBC % 0 Sodium 137 Potassium 3.6 Chloride 108 H Carbon Dioxide 22.0 Anion Gap 7 BUN 18 Creatinine 1.25 Estim Creat Clear Calc 59.96 Est GFR (MDRD) Af Amer 74 Est GFR (MDRD) Non-Af 62 BUN/Creatinine Ratio 14.4 Glucose 137 H Calcium 8.9 Total Bilirubin 0.50 AST 20 ALT 60 Alkaline Phosphatase 98 Total Protein 7.2 Albumin 3.6 Globulin 3.6 Albumin/Globulin Ratio 1.0 Lipase 41 Urine Color Yellow Urine Clarity Clear Urine pH 6.0 Ur Specific [place] 1.010 Urine Protein Negative Urine Glucose (UA) Normal Urine Ketones Negative Urine Occult Blood Negative Urine Nitrite Negative Urine Bilirubin Negative Urine Urobilinogen Normal Ur Leukocyte Esterase Negative Urine RBC 0 SEEN Urine WBC 0 SEEN Ur Squamous Epith Cells 0 SEEN Urine Bacteria 0 SEEN Urine Mucus 0 SEEN Radiography Diagnostic Testing: Clinical Impression(s) from Imaging Studies Abdomen/Pelvis CT 05/05/23 20:11 IMPRESSION: Findings which may be consistent with nonspecific inflammatory bowel disease. Mildly dilated appendix which could represent an early changes of acute appendicitis however clinical correlation is recommended Electronically Signed: Raj Stahl MD at 21:23 EST , Abdomen CT 05/05/23 21:33 IMPRESSION: 1. Colitis of infectious or inflammatory etiology. 2. No complications. 3. Ancillary findings as above. Electronically Signed: Greg Martinez MD at 1:05 EST , Abdomen CT 05/06/23 00:05 IMPRESSION: Diffuse ascending colonic wall thickening with mild surrounding inflammatory stranding concerning for infectious or acute inflammatory colitis. Correlate for history of inflammatory bowel disease. Normal appendix. Multiple 2 mm right basal lung nodules, likely sequela of prior granulomatous disease. In the absence of known malignancy would recommend 12 month follow-up CT. Earlier CT chest may be obtained as clinically indicated. Mild bladder wall thickening versus pseudothickening from incomplete distention. Correlate with urine for evidence of cystitis. Electronically Signed: Jamal Mancini MD at 3:08 EST , EKG Initial EKG: Attestation: I personally reviewed and interpreted this EKG as follows: Interpretation: Sinus Rhythm and LBBB Comments: Sinus rhythm with left bundle branch block. Rate 90. No dysrhythmia or ischemia noted. Prior EKG tracings: not available for review Differential Diagnosis Abdominal Pain: Bowel obstruction and UTI Differential Diagnosis: Diverticulitis Management Discussion w/another healthcare provider: Other (Dr Cooper, ED provider.) Treatment and Re-Evaluation :: Lab work and imaging evaluated. CBC shows elevated white count at 16 with 76.9% neutrophils. Hemoglobin 15.1. Chemistry shows elevated glucose at 137. LFTs and lipase unremarkable. Urinalysis negative for UTI. CT of the abdomen and pelvis shows concern concerns for appendicitis. Dr. Cooper discussed with Dr. Jordyn Gar who requested CT abdomen pelvis with oral contrast. Upon reevaluation, patient reports nausea has resolved. Patient currently drinking oral contrast. Patient will be signed out to Dr. Ann. <Dr. Ancelmo Cooper MD - Last Filed: 05/05/23 22:26> [facility] MDM Narrative Medical decision making narrative: IV line initiated. Labwork obtained to evaluate for leukocytosis, anemia, and electrolyte derangement. Urinalysis obtained to evaluate for infection/hematuria. EKG obtained to evaluate for cardiac arrhythmia/ischemia. I have personally performed a face to face assessment of the patient and have reviewed the LUIS Note. I performed a substantive portion of the visit including all aspects of the following. My decker findings include: History is 67-year-old male history of ischemic cardiomyopathy and prior prostate cancer. Has had about a 3 to 4-day history of nausea, vomiting and diarrhea. No fever. No dysuria. Periumbilical abdominal pain began yesterday. No prior abdominal surgeries. Exam is [67-year-old male no acute distress vital signs stable afebrile. Pulse ox 9 9% on room air no hypoxia. HEENT exam unremarkable except mild dry mucous membranes. Neck nontender no JVD. Lungs clear to auscultation bilaterally. Heart regular rhythm rate about 100 no murmur. Chest wall nontender. Abdomen soft nondistended normal bowel sounds no peritoneal signs. Mildly tender periumbilical region. No hernia. No mass. No pulsatile mass. No specific right upper or right lower quadrant tenderness. No signs of obstruction. Moving all 4 extremities. Nontender no edema. Neurologically is awake and alert no focal motor deficits. Back is nontender.] Medical Decision Making [67-year-old male with nausea vomiting diarrhea and mild abdominal discomfort. IV fluids. IV Zofran for nausea morphine for pain. And a CT of his abdomen pelvis.] Other additions or changes: [Repeat exam at 9:30 PM. Patient still has periumbilical but really not specific McBurney's point tenderness. I discussed with both he and his family the radiologist interpretation of a colitis like possibly gastroenteritis versus an early appendicitis. I discussed this also with the general surgeon on-call Dr. Greg Hayward. At this time since the diagnosis is still in question. Dr. Caceres wanted me to get a CT abdomen and pelvis with oral contrast. And then call him with that read. Patient also be started on Zosyn in case this is an early appendicitis with his elevated white count. Patient will be turned over to the overnight physician to check the CT with oral contrast and follow-up with general surgery.] Lab Data Attestation: I reviewed the patient's lab results. Lab results narrative: CBC shows an elevated white count of 16,000. H&H of 15 and 42. Electrolytes show a gap of 7. Normal BUN and creatinine of 18 and 1.25. Liver enzymes are unremarkable. Lipase is normal at 41. CT of the abdomen pelvis with IV contrast shows findings consistent with a nonspecific colitis. The radiologist is questioning a possible early appendicitis. UA normal. Labs: Laboratory Results - last 24 hr 05/05/23 05/05/23 19:54 21:36 WBC 16.0 H RBC 4.89 Hgb 15.1 Hct 42.9 MCV 87.7 MCH 30.9 MCHC 35.2 RDW Std Deviation 40.9 RDW Coeff of Bernabe 12.8 Plt Count 290 MPV 8.5 Immature Gran % (Auto) 0.600 Neut % (Auto) 76.9 H Lymph % (Auto) 17.0 L Lamb % (Auto) 4.7 Eos % (Auto) 0.6 Baso % (Auto) 0.2 Absolute Neuts (auto) 12.3 H Absolute Lymphs (auto) 2.73 Nucleated RBC % 0 Sodium 137 Potassium 3.6 Chloride 108 H Carbon Dioxide 22.0 Anion Gap 7 BUN 18 Creatinine 1.25 Estim Creat Clear Calc 59.96 Est GFR (MDRD) Af Amer 74 Est GFR (MDRD) Non-Af 62 BUN/Creatinine Ratio 14.4 Glucose 137 H Calcium 8.9 Total Bilirubin 0.50 AST 20 ALT 60 Alkaline Phosphatase 98 Total Protein 7.2 Albumin 3.6 Globulin 3.6 Albumin/Globulin Ratio 1.0 Lipase 41 Urine Color Yellow Urine Clarity Clear Urine pH 6.0 Ur Specific [place] 1.010 Urine Protein Negative Urine Glucose (UA) Normal Urine Ketones Negative Urine Occult Blood Negative Urine Nitrite Negative Urine Bilirubin Negative Urine Urobilinogen Normal Ur Leukocyte Esterase Negative Urine RBC 0 SEEN Urine WBC 0 SEEN Ur Squamous Epith Cells 0 SEEN Urine Bacteria 0 SEEN Urine Mucus 0 SEEN Radiography Diagnostic Testing: Clinical Impression(s) from Imaging Studies Abdomen/Pelvis CT 05/05/23 20:11 IMPRESSION: Findings which may be consistent with nonspecific inflammatory bowel disease. Mildly dilated appendix which could represent an early changes of acute appendicitis however clinical correlation is recommended Electronically Signed: Raj Stahl MD at 21:23 EST Reading Location ID and State: [facility] / [place] Tel , Service support , Abdomen CT 05/05/23 21:33 IMPRESSION: 1. Colitis of infectious or inflammatory etiology. 2. No complications. 3. Ancillary findings as above. Electronically Signed: Greg Martinez MD at 1:05 EST , Abdomen CT 05/06/23 00:05 IMPRESSION: Diffuse ascending colonic wall thickening with mild surrounding inflammatory stranding concerning for infectious or acute inflammatory colitis. Correlate for history of inflammatory bowel disease. Normal appendix. Multiple 2 mm right basal lung nodules, likely sequela of prior granulomatous disease. In the absence of known malignancy would recommend 12 month follow-up CT. Earlier CT chest may be obtained as clinically indicated. Mild bladder wall thickening versus pseudothickening from incomplete distention. Correlate with urine for evidence of cystitis. Electronically Signed: Jamal Mancini MD at 3:08 EST , <Dr. Wilian Ann MD - Last Filed: 05/06/23 03:23> [facility] Lab Data Labs: Laboratory Results - last 24 hr 05/05/23 05/05/23 19:54 21:36 WBC 16.0 H RBC 4.89 Hgb 15.1 Hct 42.9 MCV 87.7 MCH 30.9 MCHC 35.2 RDW Std Deviation 40.9 RDW Coeff of Bernabe 12.8 Plt Count 290 MPV 8.5 Immature Gran % (Auto) 0.600 Neut % (Auto) 76.9 H Lymph % (Auto) 17.0 L Lamb % (Auto) 4.7 Eos % (Auto) 0.6 Baso % (Auto) 0.2 Absolute Neuts (auto) 12.3 H Absolute Lymphs (auto) 2.73 Nucleated RBC % 0 Sodium 137 Potassium 3.6 Chloride 108 H Carbon Dioxide 22.0 Anion Gap 7 BUN 18 Creatinine 1.25 Estim Creat Clear Calc 59.96 Est GFR (MDRD) Af Amer 74 Est GFR (MDRD) Non-Af 62 BUN/Creatinine Ratio 14.4 Glucose 137 H Calcium 8.9 Total Bilirubin 0.50 AST 20 ALT 60 Alkaline Phosphatase 98 Total Protein 7.2 Albumin 3.6 Globulin 3.6 Albumin/Globulin Ratio 1.0 Lipase 41 Urine Color Yellow Urine Clarity Clear Urine pH 6.0 Ur Specific [place] 1.010 Urine Protein Negative Urine Glucose (UA) Normal Urine Ketones Negative Urine Occult Blood Negative Urine Nitrite Negative Urine Bilirubin Negative Urine Urobilinogen Normal Ur Leukocyte Esterase Negative Urine RBC 0 SEEN Urine WBC 0 SEEN Ur Squamous Epith Cells 0 SEEN Urine Bacteria 0 SEEN Urine Mucus 0 SEEN Radiography Diagnostic Testing: Clinical Impression(s) from Imaging Studies Abdomen/Pelvis CT 05/05/23 20:11 IMPRESSION: Findings which may be consistent with nonspecific inflammatory bowel disease. Mildly dilated appendix which could represent an early changes of acute appendicitis however clinical correlation is recommended Electronically Signed: Raj Stahl MD at 21:23 EST , Abdomen CT 05/05/23 21:33 IMPRESSION: 1. Colitis of infectious or inflammatory etiology. 2. No complications. 3. Ancillary findings as above. Electronically Signed: Greg Martinez MD at 1:05 EST , Abdomen CT 05/06/23 00:05 IMPRESSION: Diffuse ascending colonic wall thickening with mild surrounding inflammatory stranding concerning for infectious or acute inflammatory colitis. Correlate for history of inflammatory bowel disease. Normal appendix. Multiple 2 mm right basal lung nodules, likely sequela of prior granulomatous disease. In the absence of known malignancy would recommend 12 month follow-up CT. Earlier CT chest may be obtained as clinically indicated. Mild bladder wall thickening versus pseudothickening from incomplete distention. Correlate with urine for evidence of cystitis. Electronically Signed: Jamal Mancini MD at 3:08 EST , Management Discussion w/another healthcare provider: Dentures Lab Technician (Dr. Olvera) Treatment and Re-Evaluation Comments:: Patient checked out to me for CT results. I reviewed the images and the report which I agree with, basically the contrast did not reach the appendix and Dr. Olvera recommended repeating in an hour. This was done, and I reviewed the CT images and report there, and agree with that, basically showing normal appendix without evidence of appendicitis, both scans, all 3 for that matter, consistent with some degree of colitis, inflammatory and infectious etiology are in the differential. However he has been having some blood in the diarrhea and has a leukocytosis so we are going to treat him empirically for infectious etiologies. He does not have risk factors for infectious etiologies. Namely he has not traveled out of the area recently, he has not ingested any raw seafood, or other suspicious leftover food or food that was left out unrefrigerated. His did cook some flounder but she ate it 2 and has no symptoms so that is unlikely to be the cause. He already received Zosyn. I am going to prescribe him a 3-day course of ciprofloxacin, as well as some dicyclomine to use as needed, he already has Zofran at home is comfortable with his overall plan. I did reexamine him, his abdomen is very benign and nontender and he is feeling well and comfortable with that plan. Discharge Plan Triage Chief Complaint: Nausea/Vomiting/Diarrhea ED Provider: Ancelmo Cooper Dx/Rx/DC Orders Clinical Impression: Colitis, Non-ischemic cardiomyopathy, Abdominal pain, vomiting, and diarrhea Instructions: ED Understanding Colitis Prescriptions: New ciprofloxacin HCl [ciprofloxacin HCl] 500 mg tablet 500 mg PO BID Qty: 6 0RF dicyclomine 10 mg capsule 20 mg PO Q6H PRN (Reason: abdominal pain) Qty: 20 0RF No Action ascorbic acid (vitamin C) 1,000 mg tablet 1,000 mg PO BID meclizine [meclizine] 25 mg tablet 25 mg PO 4X/DAY PRN PRN (Reason: Dizziness) Qty: 20 0RF ondansetron [ondansetron] 4 mg tablet,disintegrating 4 mg PO Q8H PRN PRN (Reason: Nausea) Qty: 10 0RF albuterol sulfate 90 mcg/actuation HFA aerosol inhaler 2 puff INHALATION Q6H PRN (Reason: shortness of breath or wheezing) Patient Comments: inhale 2 puffs by mouth and INTO THE LUNGS every 6 hours if needed allopurinol 100 mg tablet 100 mg PO DAILY PRN Patient Comments: take 1 tablet by mouth once daily atorvastatin 20 mg tablet 20 mg PO DAILY Qty: 90 3RF metoprolol succinate 50 mg tablet extended release 24 hr 50 mg PO DAILY Qty: 180 3RF Primary Care Provider: Hemant Ross Referrals: Hemant Ross MD [Primary Care Provider] - 3-5 Days if not improving Disposition Disposition: Home, Self Care
[2023-05-05] MEDS: Ondansetron 4 MG/2 ML Vial IV (19:55)
[2023-05-05] MEDS: 0.9% Normal Saline (1000mL) 1,000 ML 1000 ML IV (19:55)
[2023-05-05] MEDS: Morphine 4 MG/ML Syringe IV (19:56)
[2023-05-05 20:03] LABS: Absolute Lymphocyte Count 2.73 X10^3/uL (0.83-4.51); Absolute Neutrophil Count 12.3 X10^3/uL (2.0-7.7); Basophil# 0.04 X10^3/uL; Basophil% 0.2 % (0-1); Eosinophils% 0.6 % (0-5); Hematocrit 42.9 % (40-54); Hemoglobin 15.1 g/dL (13.0-16.5); Lymphocyte # 2.73 X10^3/ul (0.83-4.51); Mean Corp Hgb Conc 35.2 g/dL (32-36); Mean Corpuscular Hgb 30.9 pg (27.0-32.0); Mean Corpuscular Volume 87.7 fL (80-94); Mean Platelet Vol. 8.5 fl (6.2-12.0); Monocyte# 0.75 X10^3/uL; Monocyte% 4.7 % (0-10); NRBC Flagged by Analyzer 0 % (0-5); Neutrophil # 12.31 X10^3/uL (2.7-7.7); Neutrophil % 76.9 % (47-70); Platelet Count 290 K/mm3 (150-450); RBC Distribution Width CV 12.8 % (11.6-14.6); RBC Distribution Width SD 40.9 fl (35.1-43.9); Red Blood Count 4.89 M/mm3 (4.6-6.2)
--- NOTE | 2023-05-05 20:11 | CT_ITS ---
STUDY: CT ABDOMEN AND PELVIS WITH CONTRAST REASON FOR EXAM: Male, 67 years old. joe-umbilical abd pain RADIATION DOSAGE (If Supplied By Facility): CTDIvol = ( 12.24 ) mGy, DLP = ( 720.37 ) mGycm TECHNIQUE: Transaxial images were obtained from the dome of the diaphragm to the symphysis pubis without oral contrast. IV 100mL Isovue-300 was administered. Sagittal and coronal images were reconstructed. Individualized dose optimization techniques were used for this CT. COMPARISON: None. FINDINGS: The visualized lung bases are unremarkable. The visualized portions of the heart are within normal limits. Normal liver. Normal gallbladder and extrahepatic biliary system. Normal spleen. Normal pancreas. Normal bilateral adrenal glands. Normal right kidney. Normal left kidney. Normal visualized stomach. Normal small intestine. There is an ahaustral appearance to the ascending transverse and proximal descending colon with thickening of the gallegos which may be consistent with nonspecific inflammatory bowel disease.. Mildly dilated appendix without appreciable thickening of the gallegos or periappendiceal edema measuring approximately 8.3 mm in diameter which may be consistent with early changes of acute appendicitis Minor atherosclerotic change of the aorta without evidence for aneurysm Normal inferior vena cava. Normal retroperitoneum. Incompletely distended thick walled bladder of uncertain significance. Nonspecific enlargement of prostate Small fat-containing left inguinal hernia.. Normal osseous structures. CT/Abdomen/Pelvis W IV Cont ONLY IMPRESSION: Findings which may be consistent with nonspecific inflammatory bowel disease. Mildly dilated appendix which could represent an early changes of acute appendicitis however clinical correlation is recommended Electronically Signed: Raj Stahl MD at 21:23 EST ,
[2023-05-05 20:23] LABS: AST(SGOT) 20 U/L (15-37); Alanine Aminotransfer ALT/SGPT 60 U/L (16-61); Albumin, Serum 3.6 g/dL (3.2-5.0); Alkaline Phosphatase 98 U/L (45-117); Anion Gap 7 (5-15); BUN 18 mg/dL (7-18); BUN/Creat Ratio 14.4 RATIO (10-20); Calcium,Total 8.9 mg/dL (8.5-10.1); Chloride 108 mmol/L (98-107); Creatinine, Serum 1.25 mg/dL (0.70-1.30); EST Glomerular Filtration Rate 62 mL/min (>60); Est Glom Filt Rate - Afr Amer 74 mL/min (>60); Estimated Creatinine Clearance 59.96 ml/min; Globulin 3.6 g/dL (2.2-4.2); Glucose 137 mg/dL (74-106); Lipase 41 U/L (13-75); Potassium 3.6 mmol/L (3.5-5.1); Protein, Total 7.2 g/dL (6.4-8.2); Sodium Level 137 mmol/L (136-145)
[2023-05-05 21:16] VITALS: BP 135/98; PULSE 82; RESP 23; O2SAT 97
--- NOTE | 2023-05-05 21:33 | CT_ITS ---
EXAM: CT ABDOMEN AND PELVIS WITHOUT INTRAVENOUS CONTRAST CLINICAL INDICATION: possible appendicitis prior CT w/ iv contrast TECHNIQUE: Helically acquired images were obtained of the abdomen and pelvis without intravenous contrast. CTDIvol = ( 11.14 ) mGy, DLP = ( 559.30 ) mGycm This CT exam was performed using one or more of the following dose reduction techniques: automated exposure control, adjustment of the mA and/or kV according to patient size, and/or use of iterative reconstruction technique. CONTRAST: Oral Gastrografin COMPARISON: No relevant prior studies available. FINDINGS: LOWER THORAX: Unremarkable. Lung bases are clear. No cardiomegaly. No significant pericardial effusion. ABDOMEN: LIVER: Unremarkable. Homogeneous. GALLBLADDER AND BILE DUCTS: Unremarkable. No calcified gallstones. No gallbladder distention or wall edema. No intra- or extrahepatic biliary ductal dilation. PANCREAS: Unremarkable. No focal cystic mass. SPLEEN: Unremarkable. Normal size without focal cystic or solid mass. ADRENALS: Unremarkable. No nodules. KIDNEYS AND URETERS: Unremarkable. Normal renal size and position. No hydronephrosis. STOMACH AND BOWEL: Circumferential thickening of the wall of the right colon, hepatic flexure, and proximal transverse colon with mild adjacent stranding. No stomach or bowel distention. PELVIS: APPENDIX: No evidence of acute appendicitis. BLADDER: Unremarkable. REPRODUCTIVE: TURP defect of the prostate which is prominent. ABDOMEN and PELVIS: INTRAPERITONEAL SPACE: Unremarkable. No ascites or other fluid collection. No free air. BONES/JOINTS: Unremarkable. No suspicious lytic or blastic abnormality. SOFT TISSUES: Small fat-containing left inguinal hernia. Small fat-containing left inguinal hernia without inflammation. VASCULATURE: Unremarkable. Abdominal aorta is non-dilated. LYMPH NODES: Unremarkable. No enlarged lymph nodes. CT/Abdomen/Pel W ORAL Cont Only IMPRESSION: 1. Colitis of infectious or inflammatory etiology. 2. No complications. 3. Ancillary findings as above. Electronically Signed: Greg Martinez MD at 1:05 EST ,
[2023-05-05 21:39] LABS: Bacteria 0 SEEN /hpf (None Seen); Mucous, Urine 0 SEEN /hpf (<or=2+); Red Blood Cells-Urine 0 SEEN /hpf (0-5); Squamous Epithelial Cells - UA 0 SEEN /hpf (0-5); White Blood Cells 0 SEEN /hpf (0-5)
[2023-05-05 21:41] LABS: Color, Urine Yellow (Yellow); Glucose, Dipstick Normal (Normal); Ketone-Dipstick Negative (Negative); Leukocyte Esterase-Dipstick Negative /ul (Negative); Nitrite-Dipstick Negative (Negative); Occult Blood-Urine Negative /ul (Negative); Protein-Dipstick Negative (Negative); Urine Bilirubin Dipstick Negative (Negative); Urine Clarity Clear (Clear); Urine Urobilinogen Normal (Normal)
[2023-05-05] MEDS: Piperacil/Tazobactam 4.5 GM in 0.9% Normal Saline (100mL MB+) 100 ML IV (21:58)
[2023-05-05 23:00] VITALS: BP 137/84; PULSE 85; RESP 19; O2SAT 95
--- NOTE | 2023-05-06 00:05 | CT_ITS ---
Abdominal or pelvic INDICATION: F/U CT FROM PRIOR 2 SCANS -- WAIT ANOTHER HOUR EXAMINATION: CT ABDOMEN AND PELVIS WITHOUT CONTRAST - CT Abdomen And Pelvis W/O Contrast Injection TECHNIQUE: Helically acquired images were obtained of the abdomen and pelvis without oral or IV contrast. A radiation dose optimization technique was used for this scan. IV Contrast dosage and agent: None. Oral contrast: None. COMPARISON: None. FINDINGS: LOWER CHEST: Multiple 2 mm peripheral right lower lung pulmonary nodules, axial image 12 and 22.. No cardiomegaly or pericardial effusion. LIVER: Homogeneous. No focal mass. GALLBLADDER AND BILIARY TREE: No calcified gallstones. No gallbladder distension or wall edema. No intra- or extrahepatic biliary ductal dilation. PANCREAS: No focal cystic or solid mass. SPLEEN: Normal size without focal cystic or solid mass. ADRENAL GLANDS: No nodules. KIDNEYS AND URETERS: Normal renal size and position. No hydronephrosis. PERITONEUM: No ascites or free air. No other fluid collection. BOWEL: No acute gastric finding. No small bowel distention or focal wall thickening. Normal contrast-filled appendix. Mild cecal, ascending colonic, and proximal transverse colon wall thickening most prominent at the hepatic flexure with acute surrounding edema. No extraluminal contrast. No evidence of obstruction or stricture. No evidence of fistulization. LYMPH NODES: No enlarged mesenteric or retroperitoneal lymph nodes. VESSELS: Aorta is non-dilated. URINARY BLADDER: Mild circumferential bladder wall thickening, exaggerated by incomplete distention. REPRODUCTIVE ORGANS: No pelvic masses. ABDOMINAL WALL: Small fat-containing left inguinal hernia without inflammation. No discrete abdominal or pelvic wall hernia. BONES: No lytic or blastic abnormality. CT/Abdomen/Pel W ORAL Cont Only IMPRESSION: Diffuse ascending colonic wall thickening with mild surrounding inflammatory stranding concerning for infectious or acute inflammatory colitis. Correlate for history of inflammatory bowel disease. Normal appendix. Multiple 2 mm right basal lung nodules, likely sequela of prior granulomatous disease. In the absence of known malignancy would recommend 12 month follow-up CT. Earlier CT chest may be obtained as clinically indicated. Mild bladder wall thickening versus pseudothickening from incomplete distention. Correlate with urine for evidence of cystitis. Electronically Signed: Jamal Mancini MD at 3:08 EST ,
[2023-05-06 01:00] VITALS: PULSE 89; RESP 17; O2SAT 97
[2023-05-06 03:00] VITALS: BP 132/79; PULSE 79; RESP 19; O2SAT 97
[2023-05-06 03:37] VITALS: BP 146/80; PULSE 88; RESP 16; TEMP 36.3; O2SAT 98
== END 2023-05-06 03:38 | disposition home or self-care (01) ==
PROVIDERS: Emergency Provider Emergency Medicine; PCP Internal Medicine; Visit Provider Emergency Medicine
DX: K52.9 Noninfective gastroenteritis and colitis, unspecified (principal); I42.8 Other cardiomyopathies; R10.9 Unspecified abdominal pain; R11.10 Vomiting, unspecified; Z86.16 Personal history of COVID-19; N40.0 Benign prostatic hyperplasia without lower urinary tract symptoms; I10 Essential (primary) hypertension; G47.33 Obstructive sleep apnea (adult) (pediatric); R91.8 Other nonspecific abnormal finding of lung field; I44.7 Left bundle-branch block, unspecified
CPT/HCPCS: 74176; 74177; 80053; 81001; 83690; 85025; 93005; 96361; 96365; 96375; 99283; J7030; J7050; Q9967; A4216; J2405

== ENCOUNTER 2023-06-11 09:37 | Emergency (ER) | payer MEDICARE, BC, SELFPAY ==
[2023-06-11 09:37] VITALS: BP 153/86; PULSE 76; RESP 14; TEMP 36; O2SAT 98; BMI 28.6
--- NOTE | 2023-06-11 09:59 | CT_ITS ---
STUDY: CT CHEST WITHOUT CONTRAST REASON FOR EXAM: Male, 67 years old. Lower right rib injury RADIATION DOSAGE (If Supplied By Facility): CTDIvol = ( 12.56 ) mGy, DLP = ( 486.67 ) mGycm TECHNIQUE: Transaxial imaging was performed without the administration of intravenous contrast material. Multiplanar coronal and sagittal images were reformatted. Individualized dose optimization techniques were used for this CT. COMPARISON: No relevant priors. FINDINGS: CHEST The lungs are normal. There is no demonstrated pleural abnormality. There are calcifications of the coronary arteries. Normal mediastinum. Normal hilar regions. Normal unenhanced pulmonary arteries. Normal aorta arch and descending thoracic aorta. There is demineralization of the thoracic spine. There is no demonstrated abnormality of the visualized upper abdomen. CT/Chest without Contrast IMPRESSION: No acute abnormality is seen. Electronically Signed: Felipe Browne MD at 10:30 EDT ,
--- NOTE | 2023-06-11 10:08 | EX.ED.GENINJ ---
HPI History of Present Illness Chief Complaint: Chest Other Informant: patient Narrative Narrative: 67-year-old male presenting to the emergency room with right chest pain. Patient states that on Wednesday he was attempting to lift and move a stove when he felt a pop suddenly in the right lower anterior mid axillary line. He states it is very focally tender to palpation and worse when he takes a deep breath. He states that he was doing this morning he moved and he felt something separate and now he notes some increased pain. States it feels swollen. He denies any fever. PFSH PFSH Medical History BPH (benign prostatic hyperplasia) Chronic HFrEF (heart failure with reduced ejection fraction) COVID-19 virus detected (09/2019) DDD (degenerative disc disease) Essential hypertension Hypertriglyceridemia Left bundle branch block (LBBB) Non-ischemic cardiomyopathy Nonrheumatic aortic (valve) insufficiency Obstructive sleep apnea Prostate cancer Home Medications ascorbic acid (vitamin C) 1,000 mg tablet 1,000 mg PO BID 08/20/21 [History Last Taken Unknown] metoprolol succinate 50 mg tablet,extended release 24 hr 50 mg PO DAILY #180 tabs 07/28/22 [Rx Last Taken Unknown] meclizine 25 mg tablet 25 mg PO 4X/DAY PRN PRN Dizziness #20 tabs 02/01/23 [Rx Last Taken Unknown] albuterol sulfate 90 mcg/actuation aerosol inhaler 2 puff inhalation Q6H PRN shortness of breath or wheezing 05/06/23 [History Last Taken Unknown] allopurinol 100 mg tablet 100 mg PO DAILY PRN GOUT 05/06/23 [History Last Taken Unknown] dicyclomine 10 mg capsule 20 mg (2 x 10 mg) PO Q6H PRN abdominal pain #20 CAPSULES 05/06/23 [Rx Last Taken Unknown] atorvastatin 20 mg tablet 20 mg PO DAILY #90 tabs 05/27/23 [Rx Last Taken Unknown] Allergy/AdvReac Type Severity Reaction Status Date / Time tamsulosin [From Flomax] Allergy Swelling Verified 06/11/23 09:38 Surgical History H/O arthroscopic knee surgery History of cataract surgery History of colonoscopy History of left heart catheterization (03/29/18) History of myringotomy History of transurethral resection of prostate Social History Smoking Status: Never smoker alcohol intake: never substance use type: does not use caffeine: Yes Type: coffee Number of servings: 1 ROS ROS ED Constitutional Constitutional ED: Denies chills, fever(s) or weight loss Eyes Eyes: Denies change in vision or diplopia ENT ENT ED: Denies ear pain, rhinorrhea or sore throat Cardiovascular Cardiovascular: Reports chest pain; Denies orthopnea, palpitations or racing heartbeat Respiratory/Chest Respiratory/Chest: Denies cough, dyspnea or orthopnea Gastrointestinal Gastrointestinal: Denies abdominal pain, diarrhea, nausea or vomiting Genitourinary Genitourinary ED: Denies dysuria, hematuria or urinary frequency Musculoskeletal Musculoskeletal: Denies arthralgias or myalgias Integumentary Denies abscess or rash Neurologic Neurologic: Denies headache(s) or weakness Psychiatric Psychiatric: Denies anxiety, depression, suicidal ideation or suicidal thoughts Endocrine Endocrinology: Denies polydipsia, polyphagia or polyuria Allergic/Immunologic Allergic/Immunologic ED: Denies mouth swelling, tongue swelling or urticaria EXAM Physical Exam Const Vital Signs: 06/11/23 09:37 06/11/23 11:10 Temperature 96.8 F L 97.6 F L Temperature Source Temporal Pulse Rate 76 84 Respiratory Rate 14 17 Blood Pressure 153/86 H 147/83 H Blood Pressure Mean 108 104 Pulse Ox 98 100 Oxygen Delivery Method Room Air Positive well nourished and well developed General Appearance ED: well developed HEENT Reports normocephalic, head/scalp atraumatic and moist mucous membranes Eyes PERRL and EOMs intact bilaterally Neck no lymphadenopathy, supple and no JVD Chest Wall Chest Narrative: Focal tenderness to palpation along the anterior mid axillary line rib approximately #8. I do not appreciate any crepitance. No ecchymosis. No subcutaneous emphysema. Resp normal respiratory effort and clear to auscultation bilaterally Cardio regular rate, regular rhythm and no murmurs GI normal to inspection, nondistended, normoactive bowel sounds and non-tender Palpation: soft Back/Spine no CVA tenderness and normal ROM Extremity normal to inspection General Extremety ED: Negative for edema General Extremity: Negative for edema Neuro oriented x3 and CN's II-XII intact bilaterally Sensorium / Orientation: alert Motor Exam: strength 5/5 throughout Psych mental status grossly normal Mood & Affect: Negative for depressed or tearful Skin no rashes or lesions noted and no wounds MDM MDM MDM Narrative Medical decision making narrative: Differential diagnosis includes costochondral separation, costochondritis, rib fracture, pneumothorax hemothorax pleural effusion pleurisy muscular strain. CT of the chest does not demonstrate any obvious fracture or acute thorax injury/pathology. Where he hurts is about right where the costal chondral junction is. Think this is most likely the area that is injured and would recommend conservative treatment with rest and Tylenol. History & Record Review Discussion w/independent historian: Patient Radiography Diagnostic Testing: Clinical Impression(s) from Imaging Studies Chest CT 06/11/23 09:59 IMPRESSION: No acute abnormality is seen. Electronically Signed: Felipe Browne MD at 10:30 EDT , Discharge Plan Triage Chief Complaint: Chest Other ED Provider: Shashi Oh Dx/Rx/DC Orders Clinical Impression: Acute chest wall pain, Costochondral separation Instructions: ED Rib Fracture Prescriptions: No Action ascorbic acid (vitamin C) 1,000 mg tablet 1,000 mg PO BID meclizine [meclizine] 25 mg tablet 25 mg PO 4X/DAY PRN PRN (Reason: Dizziness) Qty: 20 0RF albuterol sulfate 90 mcg/actuation HFA aerosol inhaler 2 puff INHALATION Q6H PRN (Reason: shortness of breath or wheezing) Patient Comments: inhale 2 puffs by mouth and INTO THE LUNGS every 6 hours if needed allopurinol 100 mg tablet 100 mg PO DAILY PRN Patient Comments: take 1 tablet by mouth once daily dicyclomine 10 mg capsule 20 mg PO Q6H PRN (Reason: abdominal pain) Qty: 20 0RF metoprolol succinate 50 mg tablet extended release 24 hr 50 mg PO DAILY Qty: 180 3RF atorvastatin 20 mg tablet 20 mg PO DAILY Qty: 90 3RF Primary Care Provider: Hemant Ross Referrals: Hemant Rsos MD [Primary Care Provider] - 10-14 Days if not better Disposition Disposition: Home, Self Care Discharge Date/Time: 06/11/23 11:11
[2023-06-11 11:10] VITALS: BP 147/83; PULSE 84; RESP 17; TEMP 36.4; O2SAT 100
== END 2023-06-11 11:11 | disposition home or self-care (01) ==
PROVIDERS: Emergency Provider Emergency Medicine; PCP Internal Medicine; Visit Provider Emergency Medicine
DX: S23.29XA Dislocation of other parts of thorax, initial encounter (principal); R07.89 Other chest pain; I10 Essential (primary) hypertension; E78.5 Hyperlipidemia, unspecified; G47.33 Obstructive sleep apnea (adult) (pediatric); Z86.16 Personal history of COVID-19; X50.0XXA Overexertion from strenuous movement or load, initial encounter; Z85.46 Personal history of malignant neoplasm of prostate
CPT/HCPCS: 71250; 99282

== ENCOUNTER → 2023-06-16 | Outpatient (CLI) | payer MEDICARE, BC, SELFPAY ==
[2023-06-16 11:45] LABS: Albumin, Serum 3.8 g/dL (3.2-5.0); BUN 27 mg/dL (7-18); BUN/Creat Ratio 19.9 RATIO (10-20); Calcium,Total 9.4 mg/dL (8.5-10.1); Chloride 108 mmol/L (98-107); Creatinine, Serum 1.36 mg/dL (0.70-1.30); EST Glomerular Filtration Rate 56 mL/min (>60); Est Glom Filt Rate - Afr Amer 68 mL/min (>60); Glucose 126 mg/dL (74-106); Phosphorus 3.2 mg/dL (2.5-4.9); Potassium 3.5 mmol/L (3.5-5.1); Sodium Level 140 mmol/L (136-145); Uric Acid 6.9 mg/dL (3.5-7.2)
== END | disposition home or self-care (01) ==
LOC: LAB 09:58
PROVIDERS: PCP Internal Medicine; Referring Provider Internal Medicine Nephrology; Visit Provider Internal Medicine Nephrology
DX: N18.31 Chronic kidney disease, stage 3a (principal); E87.5 Hyperkalemia; E79.0 Hyperuricemia without signs of inflammatory arthritis and tophaceous disease
CPT/HCPCS: 36415; 80069; 84550

== ENCOUNTER → 2024-03-08 | Outpatient (CLI) | payer MEDICARE, BC, SELFPAY ==
[2024-03-08 08:26] LABS: Albumin, Serum 3.9 g/dL (3.2-5.0); BUN 20 mg/dL (7-18); BUN/Creat Ratio 13.1 RATIO (10-20); Calcium,Total 9.3 mg/dL (8.5-10.1); Chloride 108 mmol/L (98-107); Creatinine, Serum 1.53 mg/dL (0.70-1.30); EST Glomerular Filtration Rate 49 mL/min (>60); Est Glom Filt Rate - Afr Amer 59 mL/min (>60); Glucose 108 mg/dL (74-106); Phosphorus 4.1 mg/dL (2.5-4.9); Potassium 4.7 mmol/L (3.5-5.1); Sodium Level 141 mmol/L (136-145); Uric Acid 4.6 mg/dL (3.5-7.2)
== END | disposition home or self-care (01) ==
LOC: LAB 07:45
PROVIDERS: PCP Internal Medicine; Referring Provider Internal Medicine Nephrology; Visit Provider Internal Medicine Nephrology
DX: N18.31 Chronic kidney disease, stage 3a (principal); M10.9 Gout, unspecified
CPT/HCPCS: 36415; 80069; 84550

== ENCOUNTER → 2024-11-20 | Outpatient (CLI) | payer MEDICARE, BC, SELFPAY ==
[2024-11-20 13:20] LABS: Albumin, Serum 4.7 g/dL (3.4-4.8); Anion Gap 11 (5-15); BUN 24 mg/dL (4-19); BUN/Creat Ratio 19.4 RATIO (10-20); Calcium,Total 9.9 mg/dL (7.6-11.0); Carbon Dioxide 24.9 mmol/L (21.0-32.0); Chloride 106 mmol/L (98-108); Ferritin 360 ng/mL (37-417); Glucose 98 mg/dL (70-99); Magnesium 2.6 mg/dL (1.5-2.2); Potassium 4.9 mmol/L (3.3-5.1); Vitamin B12 398 pg/mL (180-914); Vitamin D,25 Hydroxy 36.4 ng/mL (30-100)
== END | disposition home or self-care (01) ==
PROVIDERS: PCP Family Medicine; Referring Provider Family Medicine; Visit Provider Internal Medicine Nephrology
DX: N18.31 Chronic kidney disease, stage 3a (principal); R54 Age-related physical debility
CPT/HCPCS: 36415; 80069; 82306; 82607; 82728; 83735; 84443